=== PATIENT | male | born 1950 | race Caucasian/White ===

== ENCOUNTER 2016-07-23 19:42 | Inpatient (IN) | payer BC, OTHER ==
[~2016-07-23] VITALS: Ht 175.3 cm; Wt 109.9 kg
[~2016-07-23 19:42] MED LIST: FIORINAL2 PO; IMIT100T PO; METO50TA PO; MULTCAP14 PO; TYLE3 PO; VITA400C70 PO; ZOFR8TAB PO
[2016-07-23 20:11] VITALS: BP 149/92; PULSE 75; RESP 14; TEMP 97.3; O2SAT 95
[2016-07-23 21:10] VITALS: BP 169/91; PULSE 70; RESP 18; O2SAT 95
[2016-07-23] MEDS ORDERED: SODIUM CHLOR 0.9% 1000 ML INJ 1,000 ML IV ONE (21:14)
[2016-07-23] MEDS ORDERED: SODIUM CHLORIDE 0.9% FLUSH 10 ML FLUSH IVF PRN (21:15)
[2016-07-23] MEDS ORDERED: MECLIZINE HCL 25 MG TAB PO ONE (21:15)
[2016-07-23] MEDS ORDERED: ONDANSETRON HCL 4 MG/2 ML VIAL IVP ONE (21:15)
--- NOTE | 2016-07-23 21:46 | RADHPO ---
EXAM DATE/TIME: 07/23/2016 21:20 [facility] COMPARISON: CHEST PA & LAT, September 27, 2013, 10:40. INDICATIONS : Dizziness, weakness starting today MEDICAL HISTORY : None. SURGICAL HISTORY : None. ENCOUNTER: Initial ACUITY: 1 day PAIN SCORE: 0/10 LOCATION: Bilateral chest FINDINGS: A single view of the chest demonstrates the lungs to be symmetrically aerated without evidence of mas s, infiltrate or effusion. The cardiomediastinal contours are unremarkable. Osseous structures are intact. CONCLUSION: No acute disease. Jesus Valdes MD on July 23, 2016 at 21:45 Board Certified Radiologist. This report was verified electronically.
--- NOTE | 2016-07-23 21:46 | RADHPO ---
EXAM DATE/TIME: 07/23/2016 21:26 [facility] COMPARISON: No previous studies available for comparison. INDICATIONS : Dizziness. RADIATION DOSE: 66.21 CTDIvol (mGy) MEDICAL HISTORY : Hypertension. SURGICAL HISTORY : None. ENCOUNTER: Initial ACUITY: 1 day PAIN SCALE: 0/10 LOCATION: cranial TECHNIQUE: Multiple contiguous axial images were obtained of the head. Using automated exposure control and adj ustment of the mA and/or kV according to patient size, radiation dose was kept as low as reasonably a chievable to obtain optimal diagnostic quality images. FINDINGS: No signs of acute infarct or mass. Ventricles and cisterns are of normal size and configuration. No f ractures are seen. A focal area of increased attenuation in the left thalamic region measures 6.1 mm the possibility of a tiny hemorrhage at this level is difficult to exclude. There is no surrounding e saige or mass effect. A calcification can also have this appearance. CONCLUSION: Cannot exclude a tiny hemorrhage left thalamic region measuring 6 mm without surrounding edema. Calci fications may also have this appearance. A short interval followup CT examination may be of benefit. Otherwise unremarkable. Jesus Valdes MD on July 23, 2016 at 21:43 Board Certified Radiologist. This report was verified electronically.
[2016-07-23 22:10] VITALS: RESP 18; O2SAT 95
[2016-07-23 22:26] VITALS: BP 158/87; PULSE 69; RESP 18; O2SAT 93
[2016-07-23 22:29] LABS: AUTOMATED NEUTROPHIL # 10.2 TH/MM3 (1.8-7.7); BASOPHIL % 0.2 % (0.0-2.0); EOSINOPHIL % 0.1 % (0.0-4.0); HEMO FLAGS DIFF FINAL; LYMPH % 12.2 % (9.0-44.0); LYMPHOCYTE # 1.5 TH/MM3 (1.0-4.8); MEAN CELL VOLUME 87.8 FL (80.0-100.0); MEAN CORPUSCULAR HEMOGLOBIN 29.6 PG (27.0-34.0); MEAN CORPUSCULAR HGB CONC 33.7 % (32.0-36.0); MONO % 3.5 % (0.0-8.0); PLATELET COUNT 316 TH/MM3 (150-450); RED BLOOD COUNT 5.35 MIL/MM3 (4.50-5.90); RED CELL DISTRIBUTION WIDTH 12.9 % (11.6-17.2); WHITE BLOOD COUNT 12.1 TH/MM3 (4.0-11.0)
[2016-07-23 22:45] LABS: CHLORIDE 105 MEQ/L (98-107); POTASSIUM 4.3 MEQ/L (3.5-5.1); SODIUM (NA) 141 MEQ/L (136-145)
[2016-07-23 22:49] LABS: ANION GAP 8 MEQ/L (5-15); BICARBONATE 27.6 MEQ/L (21.0-32.0); BLOOD UREA NITROGEN 17 MG/DL (7-18)
[2016-07-23 22:52] LABS: ALT (GPT) 41 U/L (12-78); AST (GOT) 19 U/L (15-37); GLOMERULAR FILTRATION RATE 75 ML/MIN (>89)
[2016-07-23 22:53] LABS: TOTAL BILIRUBIN ADULT 0.3 MG/DL (0.2-1.0)
[2016-07-23 22:55] LABS: ALKALINE PHOSPHATASE 106 U/L (45-117); APTT (PATIENT) 32.4 SEC (24.3-30.1); INTERNATIONAL NORMALIZED RATIO 0.9 RATIO; PROTHROMBIN TIME - PATIENT 10.4 SEC (9.8-11.6)
[2016-07-23] MEDS ORDERED: hydrALAZINE HCL 20 MG/ML VIAL IV PUSH ONE (23:30)
[2016-07-23] MEDS ORDERED: DIAZEPAM 5 MG TAB PO ONE (23:30)
--- NOTE | 2016-07-23 23:47 | PD ---
HPI Chief Complaint: Dizziness Time Seen by Provider: 21:05 Travel History International Travel<30 days: No Contact w/Intl Traveler<30days: No Traveled to known affect area: No History of Present Illness HPI Patient is a 65-year-old male comes in complaining of dizziness. He says it started about 10 AM this morning. He says he feels like the room is spinning. He says that any change in position makes the dizziness worse. Laying still helps somewhat. He's had some nausea and vomited twice earlier today. He says that he had a headache earlier today, but that has resolved. He denies any head trauma. He denies any chest pain or shortness of breath. He says he has never had this before. [facility] Past Medical History Cancer: No Cardiovascular Problems: No Diabetes: No Endocrine: No Genitourinary: No Hepatitis: No Hiatal Hernia: No Hypertension: Yes Immune Disorder: No Medical other: Yes (CHRONIC MIGRAINES) Musculoskeletal: Yes (LOWER BACK PROBLEMS, SCIATICA) Neurologic: Yes (CHRONIC MIGRAINES - 10-15 PER MONTH) Psychiatric: No Reproductive: No Respiratory: No Thyroid Disease: No Tetanus Vaccination: Unknown Influenza Vaccination: No Past Surgical History AICD: No Joint Replacement: No Pacemaker: No Other Surgery: Yes Social History Alcohol Use: No Tobacco Use: No Substance Use: No Allergies-Medications (Allergen,Severity, Reaction): Coded Allergies: Naproxen (Verified Allergy, Mild, Swelling, 07/23/16) Reported Meds & Prescriptions Reported Meds & Active Scripts Active Review of Systems Except as stated in HPI: all other systems reviewed are Neg General / Constitutional: No: Fever, Chills Eyes: No: Blurred Vision HENT: Positive: Headaches, Vertigo Cardiovascular: No: Chest Pain or Discomfort Respiratory: No: Shortness of Breath Gastrointestinal: Positive: Nausea, Vomiting, No: Abdominal Pain Musculoskeletal: No: Myalgias Skin: No Rash, No Change in Pigmentation Neurologic: Positive: Dizziness, No: Focal Abnormalities Physical Exam Narrative GENERAL: Awake and alert, in no acute distress. SKIN: Focused skin assessment warm/dry. HEAD: Atraumatic. Normocephalic. EYES: Pupils equal and round. No scleral icterus. Extraocular movements intact , no nystagmus. ENT: Mucous membranes pink and moist. NECK: Trachea midline. No JVD. CARDIOVASCULAR: Regular rate and rhythm. No murmur appreciated. RESPIRATORY: No accessory muscle use. Clear to auscultation. Breath sounds equal bilaterally. GASTROINTESTINAL: Abdomen soft, non-tender, nondistended. MUSCULOSKELETAL: No obvious deformities. No clubbing. No cyanosis. No edema. NEUROLOGICAL: Awake and alert. No obvious cranial nerve deficits. Motor grossly within normal limits. Normal speech. Normal cerebellar function testing. PSYCHIATRIC: Appropriate mood and affect; insight and judgment normal. Data Data Last Documented VS Vital Signs Date Time Temp Pulse Resp B/P Pulse Ox O2 Delivery O2 Flow Rate FiO2 07/23/16 22:26 69 18 158/87 93 Room Air 07/23/16 20:11 97.3 Orders Electrocardiogram (07/23/16 21:14) Complete Blood Count With Diff (07/23/16 21:14) Comprehensive Metabolic Panel (07/23/16 21:14) Troponin I (07/23/16 21:14) Act Partial Throm Time (Ptt) (07/23/16 21:14) Prothrombin Time / Inr (Pt) (07/23/16 21:14) Chest, Single Ap (07/23/16 21:14) Ct Brain W/O Iv Contrast(Rout) (07/23/16 21:14) Ecg Monitoring (07/23/16 21:14) Iv Access Insert/Monitor (07/23/16 21:14) Oximetry (07/23/16 21:14) Meclizine (Antivert) (07/23/16 21:15) Ondansetron Inj (Zofran Inj) (07/23/16 21:15) Sodium Chloride 0.9% Flush (Ns Flush) (07/23/16 21:15) Sodium Chlor 0.9% 1000 Ml Inj (Ns 1000 M (07/23/16 21:14) Hydralazine Inj (Apresoline Inj) (07/23/16 23:30) Diazepam (Valium) (07/23/16 23:30) Admit Order (Ed Use Only) (07/23/16 ) Labs Laboratory Tests Test 07/23/16 22:10 White Blood Count 12.1 TH/MM3 Red Blood Count 5.35 MIL/MM3 Hemoglobin 15.8 GM/DL Hematocrit 47.0 % Mean Corpuscular Volume 87.8 FL Mean Corpuscular Hemoglobin 29.6 PG Mean Corpuscular Hemoglobin 33.7 % Concent Red Cell Distribution Width 12.9 % Platelet Count 316 TH/MM3 Mean Platelet Volume 7.7 FL Neutrophils (%) (Auto) 84.0 % Lymphocytes (%) (Auto) 12.2 % Monocytes (%) (Auto) 3.5 % Eosinophils (%) (Auto) 0.1 % Basophils (%) (Auto) 0.2 % Neutrophils # (Auto) 10.2 TH/MM3 Lymphocytes # (Auto) 1.5 TH/MM3 Monocytes # (Auto) 0.4 TH/MM3 Eosinophils # (Auto) 0.0 TH/MM3 Basophils # (Auto) 0.0 TH/MM3 CBC Comment DIFF FINAL Differential Comment Prothrombin Time 10.4 SEC Prothromb Time International 0.9 RATIO Ratio Activated Partial 32.4 SEC Thromboplast Time Sodium Level 141 MEQ/L Potassium Level 4.3 MEQ/L Chloride Level 105 MEQ/L Carbon Dioxide Level 27.6 MEQ/L Anion Gap 8 MEQ/L Blood Urea Nitrogen 17 MG/DL Creatinine 1.00 MG/DL Estimat Glomerular Filtration 75 ML/MIN Rate Random Glucose 157 MG/DL Calcium Level 8.7 MG/DL Total Bilirubin 0.3 MG/DL Aspartate Amino Transf 19 U/L (AST/SGOT) Alanine Aminotransferase 41 U/L (ALT/SGPT) Alkaline Phosphatase 106 U/L Troponin I LESS THAN 0.02 NG/ML Total Protein 7.6 GM/DL Albumin 4.0 GM/DL MDM Medical Decision Making Medical Screen Exam Complete: Yes Emergency Medical Condition: Yes Medical Record Reviewed: Yes Interpretation(s) ECG shows normal sinus rhythm at 69, no ST elevation or depression, normal intervals. Differential Diagnosis ICH versus benign positional vertigo versus migraine versus electrolyte abnormality versus ACS Narrative Course Patient is a 65-year-old male comes in complaining of severe dizziness. Exam shows no neurologic abnormalities. IV started, labs sent. Labs show slight elevation in white blood cell count. Other labs are within normal limits. Patient connected to the awake overnight monitor. Given IV fluids, Zofran, meclizine. He says this helped a little with his dizziness, but he still feels extreme dizziness when he moves his head. CT head concerning for possible hemorrhage in the thalamus. I spoke with Dr. Cordova of neurosurgery who would like the patient admitted to ICU at [facility]. Last [address] 07/23/162113 Signed Impressions: Service Date/Time: Saturday, July 23, 2016 21:26 - CONCLUSION: Cannot exclude a tiny hemorrhage left thalamic region measuring 6 mm without surrounding edema. Calcifications may also have this appearance. A short interval followup CT examination may be of benefit. Otherwise unremarkable. Jesus Valdes MD Chest X-Ray 07/23/162113 Signed Impressions: Service Date/Time: Saturday, July 23, 2016 21:20 - CONCLUSION: No acute disease. Jesus Valdes MD Patient to be admitted to Dr. Gibson. Given hydralazine for blood pressure control. Given Valium for continued symptoms. Diagnosis Primary Impression: ICH (intracerebral hemorrhage) Qualified Code: I61.9 - Left-sided nontraumatic intracerebral hemorrhage, unspecified cerebral location Additional Impression: Dizziness Admitting Information Admitting Physician Requests: Admit Condition: Stable Elaine Carreno MD July 23, 2016 23:47
[2016-07-23 23:51] VITALS: BP 168/99; PULSE 75; RESP 16; O2SAT 94
[2016-07-24] VITALS (13 sets, daily range): BP systolic 116–163; BP diastolic 64–85; PULSE 69–92; RESP 16–29; TEMP 97.5–98.1; O2SAT 92–96
[2016-07-24] MEDS: niCARdipine INJ 25 MG in SODIUM CHLOR 0.9% 250 ML INJ 250 ML IV SCH ×4 (00:21→13:22)
[2016-07-24] MEDS ORDERED: LABETALOL HCL 100 MG/20 ML VIAL IV PUSH PRN (04:45)
[2016-07-24] MEDS ORDERED: BISACODYL 10 MG SUPP RECTAL PRN (04:45)
[2016-07-24] MEDS ORDERED: CHLORHEXIDINE GLUCONATE 2 % 1 PACK (2 CLOTHS) TOP PRN (04:45)
[2016-07-24] MEDS ORDERED: hydrALAZINE HCL 20 MG/ML VIAL IV PUSH PRN (04:45)
[2016-07-24] MEDS ORDERED: ACETAMINOPHEN 325 MG TAB PO PRN (04:45)
[2016-07-24] MEDS ORDERED: LACTULOSE SYRUP 20 GM/30 ML CUP PO PRN (04:45)
[2016-07-24] MEDS ORDERED: MAGNESIUM HYDROXIDE SUSP 30 ML CUP PO PRN (04:45)
[2016-07-24] MEDS ORDERED: MISCELLANEOUS NURSING INFORMATION XX SCH (04:45)
[2016-07-24] MEDS ORDERED: SENNOSIDES 8.6 MG TAB PO PRN (04:45)
[2016-07-24] MEDS ORDERED: ONDANSETRON HCL 4 MG/2 ML VIAL IV PRN (04:45)
[2016-07-24] MEDS ORDERED: SODIUM CHLORIDE 0.9% FLUSH 10 ML FLUSH PRN (04:45)
--- NOTE | 2016-07-24 04:46 | HHI.HP ---
HPI Service Critical Care Medicine Primary Care Physician No Primary Care Physician Admission Diagnosis ICH Diagnosis: (1) Vertigo Travel History International Travel<30 Days: No Contact w/Intl Traveler <30 Da: No Traveled to Known Affected Are: No History of Present Illness 65 yo WM with past medical history of hypertension, obesity, chronic daily migraines who presented to [facility] after one day history of dizziness. He states that earlier the morning of 07/23 he was feeling fine. He began to develop a headache typical of his migraines and took Imitrex 100 mg. He then developed dizziness which he describes as "like the room spinning" and difficulty with balance. He did not fall. He states this is worse when he moves his head and better when he lays still and closes his eyes. After it first happened he went to sleep and when he woke up he felt vertigo as soon as he tried to sit up. He vomited. He denies any chest pain or shortness of breath. Has never had similar symptoms. Workup in the emergency department included CT brain with radiology report stating "cannot exclude a tiny hemorrhage left thalamic region measuring 6 mm without surrounding edema. Calcifications may have this appearance". Dr. Merrill discussed with Dr. Cordova who recommended transfer to [facility] emergency department for further evaluation. His blood pressure was 169/91 and he was started on nicardipine drip to maintain systolic blood pressure less than 150 . Patient states that he had an MRI about 9-12 months ago done at [facility] where he was told that there were similar findings in his left thalamus. He has recently had a sore throat for which she took a 10 day course of amoxicillin. He has noted that his right ear "feels stuffy". Past Family Social History Allergies: Coded Allergies: Naproxen (Verified Allergy, Mild, Swelling, 07/23/16) Past Medical History Chronic migraines "my whole life". Migraines have been increasing in frequency and has been going on daily for the last year. He is followed by Dr. Graham with [facility] Neurology. Hypertension but not on medication Obesity Past Surgical History L4-L5 hemilaminectomy and discectomy (09/30/13) Left knee meniscal surgery Reported Medications Imitrex 100 mg by mouth when necessary Fiorinal Percocet Family History Denies significant family medical history Social History He is a lifetime nonsmoker. Denies alcohol or illicit drug use. He is . His does not drive. His oldest son is emergency department physician in [employer]. He has another son that was recently accepted to [employer] He has a 4-1/2 months daughter Physical Exam Vital Signs Vital Signs Date Time Temp Pulse Resp B/P Pulse Ox O2 Delivery O2 Flow Rate FiO2 07/24/16 00:41 87 18 138/72 95 Room Air 07/24/16 00:30 86 18 146/73 94 Room Air 07/23/16 23:51 75 16 168/99 94 Room Air 07/23/16 22:26 69 18 158/87 93 Room Air 07/23/16 22:10 18 95 Room Air 07/23/16 21:10 70 18 95 Room Air 07/23/16 21:10 70 18 169/91 95 Room Air 07/23/16 20:11 97.3 75 14 149/92 95 Physical Exam Drips: Nicardipine 9 mg/h GENERAL: Well-nourished, well-developed patient who is sitting up in ISC bed SKIN: Warm and dry. HEAD: Atraumatic. Normocephalic. EYES: Pupils equal and round. No scleral icterus. No injection or drainage. ENT: No nasal bleeding or discharge. Mucous membranes pink and moist. TM with no erythema or effusion NECK: Trachea midline. No JVD. CARDIOVASCULAR: Regular rate and rhythm. No murmurs rubs or gallops. RESPIRATORY: No accessory muscle use. Clear to auscultation. Breath sounds equal bilaterally. GASTROINTESTINAL: Abdomen soft, non-tender, nondistended. Hepatic and splenic margins not palpable. MUSCULOSKELETAL: Extremities without clubbing, cyanosis, or edema. No obvious deformities. NEUROLOGICAL: Awake and alert. Pupils reactive. Extraocular movements are intact without nystagmus at rest. No facial droop, normal facial sensation, normal tongue protrusion, normal shoulder shrug. No pronator drift. Normal finger to nose bilaterally. No dysdiadochokinesis. Sensation intact deep. DTRs 2+ patellar. Strength 5 out of 5 all extremities. No clonus. Did not test gait. When Nylan Barany maneuver performed on the right, no nystagmus on initial rotation to the right, 3-4 beat horizontal nystagmus toward the left on sitting up. Laboratory Laboratory Tests Test 07/23/16 22:10 White Blood Count 12.1 Red Blood Count 5.35 Hemoglobin 15.8 Hematocrit 47.0 Mean Corpuscular Volume 87.8 Mean Corpuscular Hemoglobin 29.6 Mean Corpuscular Hemoglobin 33.7 Concent Red Cell Distribution Width 12.9 Platelet Count 316 Mean Platelet Volume 7.7 Neutrophils (%) (Auto) 84.0 Lymphocytes (%) (Auto) 12.2 Monocytes (%) (Auto) 3.5 Eosinophils (%) (Auto) 0.1 Basophils (%) (Auto) 0.2 Neutrophils # (Auto) 10.2 Lymphocytes # (Auto) 1.5 Monocytes # (Auto) 0.4 Eosinophils # (Auto) 0.0 Basophils # (Auto) 0.0 CBC Comment DIFF FINAL Differential Comment Prothrombin Time 10.4 Prothromb Time International 0.9 Ratio Activated Partial 32.4 Thromboplast Time Sodium Level 141 Potassium Level 4.3 Chloride Level 105 Carbon Dioxide Level 27.6 Anion Gap 8 Blood Urea Nitrogen 17 Creatinine 1.00 Estimat Glomerular Filtration 75 Rate Random Glucose 157 Calcium Level 8.7 Total Bilirubin 0.3 Aspartate Amino Transf 19 (AST/SGOT) Alanine Aminotransferase 41 (ALT/SGPT) Alkaline Phosphatase 106 Troponin I LESS THAN 0.02 Total Protein 7.6 Albumin 4.0 Result Diagram: 07/23/16220907/23/162209 Assessment and Plan Assessment and Plan NEURO: Imaging with reported questionable small left thalamic hemorrhage Vertigo Chronic migraines Patient indicates that he has been told he had similar finding of thalamic calcification on prior MRI imaging a year ago at [facility]. He states that these images were sent to Dr. Cordova office so would be reasonable to obtain these and correlate with current imaging. Vertigo symptoms that he is experiencing do not localize to the thalamus. Suspect benign positional vertigo versus ?vestibular migraine. Does not appear to be a central lesion on exam, though gait not tested. Neurology consult for recommendations for vertigo management. Patient may also benefit from migraine prophylactic measures. Dr. Cordova has been consulted, will follow-up recommendations. Meclizine 25 mg by mouth every 8 hours when necessary vertigo Continue home med Oxycodone as needed for pain. PT consult out of bed. RESP: On room air CV: Hypertension Will initiate metoprolol 12.5 mg by mouth twice a day for HTN as this agent can also be of benefit in migraine prophylaxis Wean off nicardipine as tolerated keeps systolic blood pressure less than 150. Labetalol/hydralazine when necessary systolic blood pressure greater than 150. GI: Obtained swallow eval and patient passed. Will advance diet to heart healthy. FEN/RENAL: Voiding ID: Mild leukocytosis may be reactive secondary to migraine/pain. Monitor for signs and symptoms of infection. Recently completed 10 day course of amoxicillin for pharyngitis HEME: Hematologic issues ENDO: Mild hyperglycemia. Monitor and initiate low-dose sliding scale if indicated. PROPH: SCDs for DVT prophylaxis. Hold pharmacologic DVT prophylaxis for now due to concern for a thalamic hemorrhage. Protonix 40 mEq by mouth daily for stress ulcer prophylaxis. ACCESS: Peripheral IV providing adequate access at this time. Level III H&P Meli Gibson MD July 24, 2016 04:46
[2016-07-24] MEDS ORDERED: oxyCODONE/ACETAMINOPHEN 5 MG/325 MG TAB PO PRN (06:15)
[2016-07-24] MEDS: PANTOPRAZOLE SODIUM 40 MG VIAL IV SCH (08:15)
[2016-07-24] MEDS: SODIUM CHLORIDE 0.9% FLUSH 10 ML FLUSH SCH ×2 (08:15→21:00)
[2016-07-24] MEDS: DOCUSATE SODIUM 50 MG/SENNA 8.6 MG TAB PO SCH ×3 (08:15→21:00)
[2016-07-24] MEDS: MECLIZINE HCL 25 MG TAB PO PRN ×2 (08:43→17:38)
[2016-07-24] MEDS ORDERED: METOPROLOL TARTRATE 25 MG TAB PO SCH (09:00)
[2016-07-24] MEDS: CARVEDILOL 12.5 MG TAB PO SCH (10:37)
[2016-07-24] MEDS: hydrALAZINE HCL 50 MG TAB PO SCH ×2 (14:17→22:00)
[2016-07-24] MEDS ORDERED: methylPREDNISolone SO SUCC INJ 500 MG in DEXTROSE 5% IN WATER 100ML INJ 100 ML IV ONE ×2 (15:00)
[2016-07-24] MEDS ORDERED: VALPROATE INJ 500 MG in SODIUM CHLORIDE 0.9% INJ 100 ML IV ONE (15:00)
--- NOTE | 2016-07-24 16:51 | MB ---
cc: SPENCER CAICEDO M.D. DATE OF CONSULTATION 07/24/16 1951 REASON FOR CONSULTATION Vertigo, migraine HISTORY OF PRESENT ILLNESS A 65-year-old man with a history of hypertension, obesity, chronic migraines since the mid 80s. However, his migraines have changed to daily now. He follows with [facility] neurology I believe, Dr. Turpin's group. He comes to [facility] after a day of dizziness, vertigo. He states that early in the morning he was fine and all of a sudden developed a headache. He took his Imitrex and developed severe vertigo where whole room spins, but he cannot tell me if it is lateralizing to one side. PT did get him up and move him and the vertigo did start, so may just be from lying down to sitting, standing. If he is lying in bed, he is fine. He has no weakness in the arms or legs. No chest pain or shortness of breath. He states that they have been working on his migraines and there he was supposed to get an injection. However, there were some insurance issues and they not get approval and it will not be done until August 04 and his migraines have been relentless. He has been on various medicines over the years and Imitrex was the one that always worked with a combination of Percocet and Fiorinal. However, even that is seemingly not working well anymore. He had a CT that showed possible small hemorrhage in the left thalamus and was transferred here to be seen by neurosurgery, Dr. Cordova. ALLERGIES NAPROSYN PAST MEDICAL HISTORY 1. Chronic migraines, 2. Hypertension, 3. Obesity, 4. Chronic cervicogenic pain. PAST SURGICAL HISTORY 1. L12-5 hemilaminectomy and diskectomy on 06/01/[address] Cordova. 2. Left knee meniscus surgery MEDICATIONS Home medicines are 1. Imitrex 2. Fiorinal 3. Percocet Current hospital medicines 1. P.r.n., hydralazine, 2. Coreg, 3. Amlodipine, 4. Pantoprazole, 5. Colace, 6. Percocet 7. Labetalol p.r.n. 8. Nicardipine drip stated 9. Meclizine p.r.n. FAMILY HISTORY None significant at this point. SOCIAL HISTORY Nonsmoker. No alcohol. No illicit drugs. . He has a son, emergency room doctor in [place]. He has another son that is also going to medical school he states. He has a 4 1/2 month-old daughter. PHYSICAL EXAMINATION VITAL SIGNS: Temperature is 97.9, pulse 84, respiratory rate 18, blood pressure is 129/71 satting at 92%. He is on a Cardene drip. NECK: Supple. No bruits. HEART: Regular. NEUROLOGIC: He is awake and alert. He is oriented and fluent. His pupils are reactive. Visual huertas are full. Face symmetrical. Tongue midline. He has some paracervical tenderness but normal range of motion. No drift. No leg lag. Cerebellar testing is normal. Toes downgoing. Sensory is normal. Gait is withheld at this time. LABORATORY DATA Reviewed. White count 12.1, neutrophils 84%. Coag panel was PTT 32.4. Chemistries - GFR 75. His glucose 157. IMAGING STUDIES He did have CT of the head that cannot exclude small hemorrhage in the thalamic 6 mm without edema. Calcifications may also be possible having this appearance. Chest x-ray - No acute disease. The patient does state that he had apparently an MRI of the brain in [facility] I believe maybe a year ago but has not had any followup since then. IMPRESSION A 65-year-old man with vertigo. Certainly concerning may be a posterior or vertebrobasilar insufficiency, posterior circulation insult. Fortunately, CAT scan does not show a large stroke. It shows a questionable left thalamic bleed, could be a calcification certainly. I would recommend imaging his brain with and without contrast. The MRI to look at the [place] as well as the carotids to better delineate the arterial system. He may also, if that is negative, just benefit from a cervical spine MRI to determine if he has any significant stenosis as he states that there has been a history of that. What I will do is put him on a little bit of steroids with some IV Depacon to see if that eliminates the headache. Continue blood pressure medication as doing and certainly can continue with meclizine as well as p.r.n. pain medication. If indicated, depending on what the posterior circulation shows he may benefit from a baby aspirin daily, however, depending on what the findings show. Further recommendations will be made accordingly. MD WINNIE Mata /1:41 PM /4:33 PM
--- NOTE | 2016-07-24 17:15 | EKG ---
Date Performed: 07/23/2016 Time Performed: 21:17:02 PTAGE: 65 years EKG: Sinus rhythm . Left axis deviation Borderline ECG PREVIOUS TRACING : 09/27/2013 09.51 Compared to prior tracing no significant change DOCTOR: Joao Lepe Interpretating Date/Time 07/24/2016 17:14:01
[2016-07-24] MEDS ORDERED: ACETAMIN 325 MG/BUTALBITAL 50 MG/CAFFEINE 40 MG TAB PO ONE (20:00)
[2016-07-24] MEDS ORDERED: SUMAtriptan SUCCINATE 50 MG TAB PO ONE (20:00)
[2016-07-25] VITALS (11 sets, daily range): BP systolic 117–153; BP diastolic 53–83; PULSE 65–94; RESP 19–26; TEMP 97.6–98.6; O2SAT 93–95
[2016-07-25] MEDS: CARVEDILOL 12.5 MG TAB PO SCH ×3 (00:26→22:15)
[2016-07-25] MEDS: CHLORHEXIDINE GLUCONATE 2 % 1 PACK (2 CLOTHS) TOP SCH (00:26)
[2016-07-25] MEDS: hydrALAZINE HCL 50 MG TAB PO SCH (05:12)
[2016-07-25] MEDS: PANTOPRAZOLE SODIUM 40 MG VIAL IV SCH (08:36)
[2016-07-25] MEDS: SODIUM CHLORIDE 0.9% FLUSH 10 ML FLUSH SCH ×2 (08:40→22:16)
[2016-07-25] MEDS: DOCUSATE SODIUM 50 MG/SENNA 8.6 MG TAB PO SCH ×2 (08:40→22:15)
[2016-07-25] MEDS ORDERED: GADODIAMIDE PF 287 MG/ML 20 ML VIAL (for RAD MRI) IV ONE (09:24)
--- NOTE | 2016-07-25 09:56 | RADRPT ---
EXAM DATE/TIME: 07/25/2016 08:50 [facility] COMPARISON: CT BRAIN W/O CONTRAST, July 23, 2016, 21:26. INDICATIONS : Mass. Intracranial hemorrhage. CONTRAST: 20 cc Omniscan (gadodiamide) IV MEDICAL HISTORY : Hypertension. SURGICAL HISTORY : Tonsillectomy. Discectomy, lumbar. ENCOUNTER: Initial ACUITY: 1 day PAIN SCORE: 0/10 LOCATION: Head. TECHNIQUE: Multiplanar, multisequence MRI of the brain was performed both prior to and following the administrat ion of paramagnetic contrast. FINDINGS: CEREBRUM: Small T2 signal abnormality in the left basal ganglia in the regional of the posterior limb of the in ternal capsule with some minimal susceptibility artifact. This measures 7 mm. The ventricles are norm al for age. No evidence of midline shift, mass lesion, or acute infarction. No extraaxial fluid col lections are seen. The pituitary gland and suprasellar cistern are normal in configuration. WHITE MATTER: No significant signal abnormalities are seen in the white matter. POSTERIOR FOSSA: The cerebellum and brainstem are intact. The 4th ventricle is midline. The cerebellopontine angle is unremarkable. The cerebellar tonsils are normal in position. DIFFUSION IMAGING: No focal areas of restricted diffusion are seen. No evidence of acute infarction. EXTRACRANIAL: The visualized portions of the orbits and paranasal sinuses are unremarkable. POST-CONTRAST: No abnormal areas of parenchymal or dural enhancement. No evidence of blood-brain barrier breakdown. CONCLUSION: 1. Tiny left basal ganglia hemorrhage. No midline shift or mass effect. 2. No mass identified. Scott Rutherford MD on July 25, 2016 at 9:49 Board Certified Radiologist. This report was verified electronically.
[2016-07-25] MEDS: MECLIZINE HCL 25 MG TAB PO PRN ×3 (09:57→22:15)
--- NOTE | 2016-07-25 10:25 | RADRPT ---
EXAM DATE/TIME: 07/25/2016 08:50 [facility] COMPARISON: No previous studies available for comparison. INDICATIONS : Stenosis. Vertebralbasilar insufficiency. CONTRAST: 20 cc Omniscan (gadodiamide) IV MEDICAL HISTORY : Hypertension. SURGICAL HISTORY : Tonsillectomy. Discectomy, lumbar. ENCOUNTER: Initial ACUITY: 1 day PAIN SCORE: 0/10 LOCATION: Neck. Percent stenosis is calculated using the diameter of the stenotic region over the diameter of the nor mal distal internal carotid artery. TECHNIQUE: Bolus infused MRA of the extracranial circulation was performed using a neurovascular coil. Post pro cessing was performed including rotating subvolume maximum intensity projections of each carotid maikel ry, rotating full volume maximum intensity projections of both carotid arteries, sagittal and coronal sliding thin slab reformations of each carotid artery, and left oblique sliding thin slab reformatio n through the aortic arch to include the origin of the arch branch vessels. FINDINGS: AORTIC ARCH: There is a three vessel origin of the great vessels from the aorta. No evidence of ostial narrowing. RIGHT CAROTID: The common carotid artery is intact. The carotid bulb has a normal configuration without ulceration or narrowing. The internal carotid artery lumen is smooth without stenosis. The external carotid ar rita is intact. LEFT CAROTID: The common carotid artery is intact. The carotid bulb has a normal configuration without ulceration or narrowing. The internal carotid artery lumen is smooth without stenosis. The external carotid ar rita is intact. VERTEBRALS: The vertebral arteries have a symmetric diameter. No stenotic lesions are seen. CONCLUSION: 1. Normal carotid arteries. 2. Normal vertebral/basilar arteries. Scott Rutherford MD on July 25, 2016 at 10:21 Board Certified Radiologist. This report was verified electronically.
--- NOTE | 2016-07-25 10:28 | RADRPT ---
EXAM DATE/TIME: 07/25/2016 08:50 [facility] COMPARISON: No previous studies available for comparison. INDICATIONS : Cephalgia. Vertebralbasilar insufficiency. MEDICAL HISTORY : Hypertension. SURGICAL HISTORY : Tonsillectomy. Discectomy, lumbar. ENCOUNTER: Initial ACUITY: 1 day PAIN SCORE: 0/10 LOCATION: Head. Please note a normal MRA of the brain does not entirely exclude the possibility of a small aneurysm, nor the possibility of distal intracranial vessel disease. TECHNIQUE: 3D time of flight MRA was performed. Source images, multiplanar STS MIP, and 3D volume MIP reconstru ctions were reviewed. FINDINGS: There is excellent visualization of the major intracranial arteries out to the second-order branch ve ssels. There is no evidence for aneurysm, vessel truncation or stenosis, and no evidence for vascula r malformation. Anterior communicating artery is not seen. Bilateral posterior communicating arteries , larger on the left. Vertebrobasilar junction is normal. Basilar artery is normal. Distal internal c arotid arteries are normal in caliber. Left basal ganglia hemorrhage. CONCLUSION: 1. Left basal ganglia hemorrhage. 2. No stenosis or aneurysm. 3. Normal variants as described above. Scott Rutherford MD on July 25, 2016 at 10:23 Board Certified Radiologist. This report was verified electronically.
[2016-07-25 14:12] LABS: HDL CHOLESTEROL 54.3 MG/DL (40.0-60.0); LDL CHOLESTEROL 95 MG/DL (0-99)
[2016-07-25] MEDS: hydrALAZINE HCL 100 MG TAB PO SCH ×2 (14:45→22:15)
[2016-07-25 16:30] LABS: HEMOGLOBIN A1a 1.4 %; HEMOGLOBIN A1b 2.3 %; HEMOGLOBIN Ao 81.1 %; HEMOGLOBIN LA1C 3.2 %; HEMOGLOBIN P3 6.2 %
[2016-07-25] MEDS ORDERED: ENALAPRILAT 2.5 MG/2 ML VIAL IV PUSH PRN (16:30)
--- NOTE | 2016-07-25 16:30 | HHI.PR ---
Subjective Remarks f/u vertigo and Osei patient stated OSEI improved once he got his sumatriptan. he also stated that meclizine helps his vertigo and he never refused it. denied any focal neurological deficits. Patient asking to go home. denied any N/V and tolerating PO intake. Objective Vitals Vital Signs Date Time Temp Pulse Resp B/P Pulse Ox O2 Delivery O2 Flow Rate FiO2 07/25/16 14:00 93 07/25/16 12:00 97.7 94 24 153/83 93 07/25/16 12:00 94 07/25/16 10:00 81 07/25/16 08:00 90 07/25/16 08:00 95 Room Air 07/25/16 08:00 98.6 90 20 134/61 95 07/25/16 04:00 74 07/25/16 04:00 98.6 74 19 117/53 94 07/25/16 02:00 86 07/25/16 00:00 85 07/25/16 00:00 97.6 88 21 119/64 95 07/24/16 22:00 74 07/24/16 20:00 69 07/24/16 20:00 98.1 69 21 132/79 95 07/24/16 19:00 94 Room Air 07/24/16 18:00 72 I/O 07/24/16 07/24/16 07/24/16 07/25/16 07/25/16 07/25/16 07:00 15:00 23:00 07:00 15:00 23:00 Intake Total 492 ml 1195 ml 500 ml 720 ml Output Total 1650 ml 1875 ml 150 ml 600 ml Balance -1158 ml -680 ml 350 ml 120 ml Intake Oral 240 ml 720 ml 250 ml 720 ml IV Total 252 ml 475 ml 250 ml 0 ml Output Urine Total 1650 ml 1875 ml 600 ml Emesis 150 ml # Voids 1 2 # Bowel Movements 0 Result Diagram: 07/23/16220907/23/162209 Objective Remarks GENERAL: in NAD NECK: Supple, trachea midline. No JVD or lymphadenopathy. CARDIOVASCULAR: Regular rate and rhythm without murmurs, gallops, or rubs. RESPIRATORY: Breath sounds equal bilaterally. No accessory muscle use. GASTROINTESTINAL: Abdomen soft, non-tender, nondistended. MUSCULOSKELETAL: No cyanosis, or edema. BACK: Nontender without obvious deformity. No CVA tenderness. NEURO: AAO X 3. CN 2-12 intact. 5/5 upper and lower ext strength. coordination intact. Medications and IVs Current Medications Meclizine HCl (Antivert) 50 mg ONCE ONCE PO Last administered on 07/23/16 22: 23; Start 07/23/16 at 21:15; Stop 07/23/16 at 21:16; Status DC Ondansetron HCl (Zofran Inj) 4 mg ONCE ONCE IVP Last administered on 22:22; Start 07/23/16 at 21:15; Stop 07/23/16 at 21:16; Status DC Sodium Chloride 2 ml 2 ml UNSCH PRN IVF FLUSH AFTER USING IV ACCESS; Start at 21:15; Stop 07/24/16 at 04:51; Status DC Sodium Chloride (NS 1000 ml Inj) 1,000 ml @ 1,000 mls/hr Q1H ONCE IV Last administered on 07/23/16 22:22; Start 07/23/16 at 21:14; Stop 07/23/16 at 22:13 ; Status DC Hydralazine HCl (Apresoline Inj) 10 mg ONCE ONCE IV PUSH Last administered on 07/23/16 23:38; Start 07/23/16 at 23:30; Stop 07/23/16 at 23:31; Status DC Diazepam 5 mg 5 mg ONCE ONCE PO Last administered on 07/23/16 23:38; Start at 23:30; Stop 07/23/16 at 23:31; Status DC Nicardipine HCl/ Sodium Chloride (Cardene Inj/NS 250 ml Inj) 260 ml @ 0 mls/hr TITRATE IV Last administered on 07/24/16 03:07; Start 07/24/16 at 00:15; Stop 07/24/16 at 04:51; Status DC Meclizine HCl (Antivert) 25 mg Q6H PRN PO VERTIGO Last administered on 14:48; Start 07/24/16 at 04:30 Labetalol HCl (Trandate Inj) 10 mg Q4H PRN IV PUSH SBP >150; Start 07/24/16 at 04:45 Metoprolol Tartrate (Lopressor) 12.5 mg Q12HR PO Last administered on 08:15; Start 07/24/16 at 09:00; Stop 07/24/16 at 10:14; Status DC Sodium Chloride (NS Flush) 2 ml UNSCH PRN .XX FLUSH AFTER USING IV ACCESS; Start 07/24/16 at 04:45 Sodium Chloride (NS Flush) 2 ml BID .XX Last administered on 07/25/16 08:40; Start 07/24/16 at 09:00 Acetaminophen (Tylenol) 650 mg Q6H PRN PO PAIN 1-10 AND/OR FEVER >101F; Start 07/24/16 at 04:45 Pantoprazole Sodium (Protonix Inj) 40 mg DAILY IV Last administered on 08:36; Start 07/24/16 at 09:00; Stop 07/25/16 at 08:48; Status DC Ondansetron HCl (Zofran Inj) 4 mg Q6H PRN IV NAUSEA OR VOMITING Last administered on 07/24/16 20:31; Start 07/24/16 at 04:45 Miscellaneous Information 1 Q361D XX Last administered on 07/24/16 04:45; Start 07/24/16 at 04:45 Chlorhexidine Gluconate (Chlorhexidine 2% Cloth) 3 pack Taper DAILY@04 TOP ; Start 07/25/16 at 04:00; Stop 07/21/17 at 03:59 Chlorhexidine Gluconate (Chlorhexidine 2% Cloth) 3 pack UNSCH PRN TOP HYGIENIC CARE; Start 07/24/16 at 04:45 Senna/Docusate Sodium (Zo-Colace) 1 tab BID PO ; Start 07/24/16 at 09:00 Magnesium Hydroxide (Milk Of Magnesia Liq) 30 ml Q12H PRN PO MILD - MODERATE CONSTIPATION; Start 07/24/16 at 04:45 Sennosides (Senokot) 17.2 mg Q12H PRN PO MODERATE - SEVERE CONSTIPATION; Start 07/24/16 at 04:45 Bisacodyl (Dulcolax Supp) 10 mg DAILY PRN RECTAL SEVERE CONSITIPATION; Start at 04:45 Lactulose 30 ml 30 ml DAILY PRN PO SEVERE CONSITIPATION; Start 07/24/16 at 04: 45 Nicardipine HCl/ Sodium Chloride (Cardene Inj/NS 250 ml Inj) 260 ml @ 0 mls/hr TITRATE IV Last administered on 07/24/16 13:22; Start 07/24/16 at 04:45; Stop 07/25/16 at 13:11; Status DC Hydralazine HCl (Apresoline Inj) 10 mg Q4H PRN IV PUSH SBP > 150 Last administered on 07/25/16 10:02; Start 07/24/16 at 04:45 Oxycodone/ Acetaminophen (Percocet 5-325 Mg) 1 tab Q4H PRN PO PAIN Last administered on 07/24/16 14:17; Start 07/24/16 at 06:15 Carvedilol (Coreg) 12.5 mg Q12HR PO Last administered on 07/25/16 08:36; Start 07/24/16 at 10:11 Amlodipine Besylate (Norvasc) 10 mg DAILY PO Last administered on 07/25/16 08: 36; Start 07/24/16 at 10:11 Hydralazine HCl 50 mg 50 mg Q8HR PO Last administered on 07/25/16 05:12; Start 07/24/16 at 14:00; Stop 07/25/16 at 13:11; Status DC Valproate Sodium 500 mg/Sodium Chloride 105 ml @ 105 mls/hr ONCE ONCE IV Last administered on 07/24/16 15:46; Start 07/24/16 at 15:00; Stop 07/24/16 at 15:59; Status DC Methylprednisolone Sodium Succinate/ Dextrose (SoluMEDROL INJ/ D5W 100 ml Inj) 100 ml @ 200 mls/hr ONCE ONCE IV Last administered on 07/24/16 15:46; Start 07/24/16 at 15:00; Stop 07/24/16 at 15:29; Status DC Acetaminophen/ Butalbital/ Caffeine (Fioricet 325-50-40) 1 tab NOW ONCE PO Last administered on 07/24/16 20:31; Start 07/24/16 at 20:00; Stop 07/24/16 at 20:01; Status DC Sumatriptan Succinate (Imitrex) 100 mg NOW ONCE PO Last administered on 20:31; Start 07/24/16 at 20:00; Stop 07/24/16 at 20:01; Status DC Pantoprazole Sodium (Protonix) 40 mg DAILY PO ; Start 07/26/16 at 09:00 Gadodiamide (Omniscan Pf Inj) 20 ml STK-MED ONCE IV Last administered on 09:24; Start 07/25/16 at 09:24; Stop 07/25/16 at 09:25; Status DC Hydralazine HCl (Apresoline) 100 mg Q8HR PO Last administered on 07/25/16 14: 45; Start 07/25/16 at 14:00 A/P Problem List: (1) Vertigo ICD Code: R42 Status: Acute Assessment and Plan Imaging with reported small left thalamic hemorrhage Vertigo Chronic migraines d/w Dr. Cordova in person in regards to results. He stated if ASA indicated may start ASA. no further recommendations. d/w Dr. Vaz over the phone and stated if patient clinically doing well can d/ c on ASA, but patient signed out to Dr. Mcfarland if he is still here. Meclizine 25 mg by mouth every 8 hours when necessary vertigo which improved vertigo so continue with meclizine PRN. Continue home med Oxycodone as needed for pain. need better controlled of blood pressure. medication adjusted. Hypertension on metoprolol 12.5 mg by mouth twice a day for HTN as this agent can also be of benefit in migraine prophylaxis off cardene gtt. on enalapril PRN Mild leukocytosis -no signs of infection. PROPH: SCDs for DVT prophylaxis. Hold pharmacologic DVT prophylaxis for now due to concern for a thalamic hemorrhage. Protonix 40 mEq by mouth daily for stress ulcer prophylaxis. nurse was at bedside during interview. Discharge Planning Need better control of BP before discharge due to intracranial bleed. Mahi Chiang MD July 25, 2016 16:30
--- NOTE | 2016-07-25 18:49 | HHI.PR ---
Objective Vital Signs Date Time Temp Pulse Resp B/P Pulse Ox O2 Delivery O2 Flow Rate FiO2 07/25/16 18:00 85 07/25/16 16:00 98.2 94 26 148/79 95 07/25/16 16:00 94 07/25/16 14:00 93 07/25/16 12:00 97.7 94 24 153/83 93 07/25/16 12:00 94 07/25/16 10:00 81 07/25/16 08:00 90 07/25/16 08:00 95 Room Air 07/25/16 08:00 98.6 90 20 134/61 95 07/25/16 04:00 74 07/25/16 04:00 98.6 74 19 117/53 94 07/25/16 02:00 86 07/25/16 00:00 85 07/25/16 00:00 97.6 88 21 119/64 95 07/24/16 22:00 74 07/24/16 20:00 69 07/24/16 20:00 98.1 69 21 132/79 95 07/24/16 19:00 94 Room Air I/O 07/24/16 07/24/16 07/24/16 07/25/16 07/25/16 07/25/16 07:00 15:00 23:00 07:00 15:00 23:00 Intake Total 492 ml 1195 ml 500 ml 720 ml Output Total 1650 ml 1875 ml 150 ml 600 ml Balance -1158 ml -680 ml 350 ml 120 ml Intake Oral 240 ml 720 ml 250 ml 720 ml IV Total 252 ml 475 ml 250 ml 0 ml Output Urine Total 1650 ml 1875 ml 600 ml Emesis 150 ml # Voids 1 2 # Bowel Movements 0 Result Diagram: 07/23/16 22107/23/162209 Objective Remarks no herrera now vff face sym /5 t/o nad Assessment and Plan Assessment and Plan mri adn ct small left thalmic bleed mra neck and cow neg looks well ] could dc tomorrow if stable some new dm he does not know about check esr Demetrio Mcfarland MD July 25, 2016 18:49
[2016-07-25] MEDS ORDERED: SUMAtriptan SUCCINATE 50 MG TAB PO ONE (23:15)
[2016-07-25] MEDS ORDERED: ACETAMIN 325 MG/BUTALBITAL 50 MG/CAFFEINE 40 MG TAB PO ONE (23:15)
[2016-07-26 01:00] VITALS: BP 122/60; PULSE 80; RESP 18; TEMP 97.3; O2SAT 94
[2016-07-26] MEDS: CHLORHEXIDINE GLUCONATE 2 % 1 PACK (2 CLOTHS) TOP SCH (04:00)
[2016-07-26 04:59] VITALS: BP_SYST 120; BP_SYST 122; BP_DIAS 53; BP_DIAS 60; PULSE 68; RESP 18; TEMP 97.3; O2SAT 94
[2016-07-26] MEDS: hydrALAZINE HCL 100 MG TAB PO SCH (05:39)
[2016-07-26 08:00] VITALS: BP 102/51; PULSE 80; RESP 18; TEMP 96.5; O2SAT 93
[2016-07-26 08:06] LABS: HEMATOCRIT 44.6 % (39.0-51.0); MEAN CELL VOLUME 89.3 FL (80.0-100.0); MEAN CORPUSCULAR HEMOGLOBIN 29.3 PG (27.0-34.0); MEAN CORPUSCULAR HGB CONC 32.8 % (32.0-36.0); PLATELET COUNT 283 TH/MM3 (150-450); RED CELL DISTRIBUTION WIDTH 14.1 % (11.6-17.2); REVIEW FLAG FINAL
[2016-07-26 08:26] LABS: BICARBONATE 29.6 MEQ/L (21.0-32.0)
[2016-07-26] MEDS: CARVEDILOL 12.5 MG TAB PO SCH (09:00)
[2016-07-26] MEDS ORDERED: PANTOPRAZOLE SOD 40 MG DELAYED RELEASE TAB PO SCH (09:00)
[2016-07-26] MEDS: SODIUM CHLORIDE 0.9% FLUSH 10 ML FLUSH SCH (09:00)
[2016-07-26] MEDS: DOCUSATE SODIUM 50 MG/SENNA 8.6 MG TAB PO SCH (09:00)
[2016-07-26] MEDS: MECLIZINE HCL 25 MG TAB PO PRN (09:05)
--- NOTE | 2016-07-26 10:15 | HHI.PR ---
Subjective Remarks herrera on and off dc with imitrex Objective Vital Signs Date Time Temp Pulse Resp B/P Pulse Ox O2 Delivery O2 Flow Rate FiO2 07/26/16 08:00 96.5 80 18 102/51 93 07/26/16 04:59 97.3 68 18 122/60 94 07/26/16 01:00 97.3 80 18 122/60 94 07/25/16 22:00 65 07/25/16 20:00 88 07/25/16 20:00 98.4 88 21 128/56 94 07/25/16 19:00 94 Room Air 07/25/16 18:00 85 07/25/16 16:00 98.2 94 26 148/79 95 07/25/16 16:00 94 07/25/16 14:00 93 07/25/16 12:00 97.7 94 24 153/83 93 07/25/16 12:00 94 I/O 07/25/16 07/25/16 07/25/16 07/26/16 07/26/16 07/26/16 07:00 15:00 23:00 07:00 15:00 23:00 Intake Total 720 ml 500 ml Output Total 600 ml Balance 120 ml 500 ml Intake Oral 720 ml 500 ml IV Total 0 ml Output Urine Total 600 ml # Voids 2 3 5 # Bowel Movements 2 Result Diagram: 07/26/16 0740 07/26/16 0745 Objective Remarks no herrera now vff face sym 07/04 t/o nad nl gait no nystag Assessment and Plan Assessment and Plan mri and ct small left thalmic bleed mra neck and cow neg looks well could dc gait nl some new dm he does not know about check esr nl ok dc call dr riggins office Demetrio Obregon MD July 26, 2016 10:15
[2016-07-26] MEDS ORDERED: HYDR-3801 PO (10:35)
[2016-07-26] MEDS ORDERED: CARV12.5 PO (10:35)
[2016-07-26] MEDS ORDERED: MECL1TAB42 PO (10:35)
[2016-07-26] MEDS ORDERED: AMLO10 PO (10:35)
[2016-07-26] MEDS ORDERED: BUTA1CAP PO (10:37)
--- NOTE | 2016-07-26 10:42 | HHI.DS ---
Discharge Summary Admission Date July 23, 2016 at 23:25 Discharge Date: July 26, 2016 Admitting Diagnosis ICH (1) ICH (intracerebral hemorrhage) ICD Code: I61.9 Diagnosis: Principal (2) Vertigo ICD Code: R42 Diagnosis: Principal (3) Hypertension ICD Code: I10 Diagnosis: Principal (4) Headache ICD Code: R51 Diagnosis: Principal (5) Diabetes ICD Code: E11.9 Diagnosis: Secondary Procedures None Brief History - From Admission 65 yo WM with past medical history of hypertension, obesity, chronic daily migraines who presented to [facility] after one day history of dizziness. He states that earlier the morning of 07/23 he was feeling fine. He began to develop a headache typical of his migraines and took Imitrex 100 mg. He then developed dizziness which he describes as "like the room spinning" and difficulty with balance. He did not fall. He states this is worse when he moves his head and better when he lays still and closes his eyes. After it first happened he went to sleep and when he woke up he felt vertigo as soon as he tried to sit up. He vomited. He denies any chest pain or shortness of breath. Has never had similar symptoms. Workup in the emergency department included CT brain with radiology report stating "cannot exclude a tiny hemorrhage left thalamic region measuring 6 mm without surrounding edema. Calcifications may have this appearance". Dr. Merrill discussed with Dr. Cordova who recommended transfer to [facility] emergency department for further evaluation. His blood pressure was 169/91 and he was started on nicardipine drip to maintain systolic blood pressure less than 150 . Patient states that he had an MRI about 9-12 months ago done at [facility] where he was told that there were similar findings in his left thalamus. He has recently had a sore throat for which she took a 10 day course of amoxicillin. He has noted that his right ear "feels stuffy". CBC/BMP: 07/26/16 0740 07/26/16 0745 Significant Findings Laboratory Tests Test 07/23/16 07/25/16 07/26/16 07/26/16 22:10 13:30 07:40 07:45 White Blood Count 12.1 TH/MM3 12.0 TH/MM3 (4.0-11.0) (4.0-11.0) Neutrophils (%) (Auto) 84.0 % (16.0-70.0) Neutrophils # (Auto) 10.2 TH/MM3 (1.8-7.7) Activated Partial 32.4 SEC Thromboplast Time (24.3-30.1) Estimat Glomerular Filtration 75 ML/MIN (>89) 73 ML/MIN (>89) Rate Random Glucose 157 MG/DL 118 MG/DL (74-106) (74-106) Troponin I LESS THAN 0.02 NG/ML (0.02-0.05) Hemoglobin A1c 7.0 % (4.3-6.0) Blood Urea Nitrogen 27 MG/DL (7-18) Calcium Level 8.2 MG/DL (8.5-10.1) Imaging Last Impressions Neck Magnetic Resonance Angiography 07/25/16 0000 Signed Impressions: Service Date/Time: Monday, July 25, 2016 08:50 - CONCLUSION: 1. Normal carotid arteries. 2. Normal vertebral/basilar arteries. Scott Rutherford MD Head Magnetic Resonance Angiography 07/25/16 0000 Signed Impressions: Service Date/Time: Monday, July 25, 2016 08:50 - CONCLUSION: 1. Left basal ganglia hemorrhage. 2. No stenosis or aneurysm. 3. Normal variants as described above. Scott Rutherford MD Brain MRI 07/25/16 0000 Signed Impressions: Service Date/Time: Monday, July 25, 2016 08:50 - CONCLUSION: 1. Tiny left basal ganglia hemorrhage. No midline shift or mass effect. 2. No mass identified. Scott Rutherford MD Head CT 07/23/162113 Signed Impressions: Service Date/Time: Saturday, July 23, 2016 21:26 - CONCLUSION: Cannot exclude a tiny hemorrhage left thalamic region measuring 6 mm without surrounding edema. Calcifications may also have this appearance. A short interval followup CT examination may be of benefit. Otherwise unremarkable. Jesus Valdes MD Chest X-Ray 07/23/162113 Signed Impressions: Service Date/Time: Saturday, July 23, 2016 21:20 - CONCLUSION: No acute disease. Jesus Valdes MD PE at Discharge GENERAL: in NAD NECK: Supple, trachea midline. No JVD or lymphadenopathy. CARDIOVASCULAR: Regular rate and rhythm without murmurs, gallops, or rubs. RESPIRATORY: Breath sounds equal bilaterally. No accessory muscle use. GASTROINTESTINAL: Abdomen soft, non-tender, nondistended. MUSCULOSKELETAL: No cyanosis, or edema. BACK: Nontender without obvious deformity. No CVA tenderness. NEURO: AAO X 3. CN 2-12 intact. 5/5 upper and lower ext strength. coordination intact. Pt update on day of discharge Follow-up for intracranial bleed Patient stated that headache resolved with Fioricet. He stated that he is not aware of him having diabetes. Patient stated that dizziness has resolved. Patient denies any focal neurological deficit, visual changes. Patient stated that he feels a lot better today. He shouldn't stated that he is very anxious to go home today. Hospital Course Imaging with reported small left thalamic hemorrhage Vertigo Chronic migraines MRI/MRA shows a small left thalamic hemorrhage d/w Dr. Cordova in person in regards to results. He stated if ASA indicated may start ASA. no further recommendations. Per Dr. Mcfarland no aspirin. Meclizine 25 mg by mouth every 8 hours when necessary vertigo which improved vertigo so continue with meclizine PRN. Continue home med Oxycodone as needed for pain. Tight blood pressure control due to hemorrhage. At the time of discharge patient blood pressure was within normal limits. Hypertension Initially patient was put on the Cardene drip which was tapered off. He was then started on carvedilol, amlodipine and hydralazine. Blood pressure was controlled with this regimen. Mild leukocytosis -no signs of infection. Type 2 diabetes -Hemoglobin A1c 7. He will need a repeat hemoglobin A1c to confirm the diagnosis diabetes. Patient educated extensively on diabetic diet, complications of diabetes, and weight loss. He was told to follow-up with his primary care regards to this. Pt Condition on Discharge: Good Discharge Disposition: Discharge Home Discharge Time: <= 30 minutes Discharge Instructions DIET: Follow Instructions for: Heart Healthy Diet, Diabetic Diet Activities you can perform: Regular-No Restrictions Follow up Referrals: Neurology - 2 Weeks with Lady Vaz MD PCP Follow-up - 1 Week New Medications: [id number]-[id number]-Xbqxjwcz (Fioricet) 50-300-40 Mg Cap 1-2 CAP PO Q6H PRN HEADACHE #20 Ref 0 CAP Amlodipine (Norvasc) 10 Mg Tab 10 MG PO DAILY hypertension #30 Ref 0 TAB Carvedilol (Coreg) 12.5 Mg Tab 12.5 MG PO Q12HR hypertension #60 Ref 0 TAB Hydralazine (Hydralazine) 100 Mg Tab 100 MG PO Q8HR hypertension #90 Ref 0 TAB Meclizine HCl (Meclizine 25) 25 Mg Tab 25 MG PO Q6H PRN VERTIGO #30 Ref 0 TAB Mahi Chiang MD July 26, 2016 10:42
--- NOTE | 2016-07-26 10:42 | HHI.DCPOC ---
Discharge Care Plan Diagnosis: (1) ICH (intracerebral hemorrhage) (2) Hypertension (3) Vertigo (4) Headache (5) Diabetes Goals to Promote Your Health * To prevent worsening of your condition and complications * To maintain your health at the optimal level Directions to Meet Your Goals Take your medications as prescribed Follow your dietary instruction Follow activity as directed Keep your appointments as scheduled Take your immunizations and boosters as scheduled If your symptoms worsen call your PCP, if no PCP go to Urgent Care Center or Emergency Room Smoking is Dangerous to Your Health. Avoid second hand smoke Call the 24-hour hour crisis hotline for domestic abuse at Mahi Chiang MD July 26, 2016 10:42
[2016-07-26 12:00] VITALS: BP 126/75; PULSE 77; RESP 18; TEMP 98.8; O2SAT 94
== END 2016-07-26 13:31 | disposition home or self-care (01) | DRG 66 ==
LOC: PHED 19:42 → PHEDA 23:25 → N03A 07-24 01:26 → N05B 07-25 22:38
PROVIDERS: ADMIT Emergency Medicine; ATTEND Family Medicine
DX: I61.9 Nontraumatic intracerebral hemorrhage, unspecified (principal); E11.65 Type 2 diabetes mellitus with hyperglycemia; I10 Essential (primary) hypertension; G43.909 Migraine, unspecified, not intractable, without status migrainosus; D72.829 Elevated white blood cell count, unspecified; R42 Dizziness and giddiness; E66.9 Obesity, unspecified; Z68.35 Body mass index [BMI] 35.0-35.9, adult; Z71.3 Dietary counseling and surveillance
CPT/HCPCS: 70450; 70544; 70548; 70553; 71010; 80048; 80053; 80061; 83036; 84484; 85025; 85027; 85610; 85652; 85730; 87641; 93005; 96361; 96374; A9579; C9113; J0360; J2405; J2930; J7030; J7050

== ENCOUNTER 2017-12-07 19:33 | Observation (INO) ==
[2017-12-07] MEDS ORDERED: Sod Chloride 0.9% Inj 1,000 ML IV.CONT SCH (19:45)
--- NOTE | 2017-12-07 19:46 | ED ---
HPI General Chief Complaint: Stroke Alert Stated Complaint: Stroke alert Time Seen by Provider: 12/07/17 19:53 Source: patient Mode of arrival: EMS Limitations: no limitations History of Present Illness HPI Narrative: EMS brought patient in as a stroke alert, patient has been experiencing headache and dizziness since 1:30 PM. The patient stated that this feels just exactly the same way that he when he developed a brain bleed in the past. Patient denies being on any anticoagulants......blair NICOLE Complaint: Reports headache Onset (ago): hour(s) (7p) Onset description: gradual Location: Reports diffuse Relieving factors: nothing Exacerbating factors: none Context: Reports occurred at rest Associated symptoms: Reports none Treatments prior to arrival: Reports none Related Data Home Medications Medication Instructions Recorded Confirmed lisinopril 10 mg PO DAILY 12/07/17 12/07/17 Previous Rx's Medication Instructions Recorded meclizine 25 mg PO TID PRN #60 tab 12/08/17 Allergies Allergy/AdvReac Type Severity Reaction Status Date / Time naproxen Allergy Mild Swelling Verified 12/07/17 19:50 Review of Systems ROS: all other systems reviewed are negative PMFSH History History Provided By: Patient Medical History Medical History Brain bleed (Acute) History of torn meniscus of left knee (Acute) Surgical History Surgical History H/O discectomy (Acute) Family History Family History Other Family history normal Social History Social History Substance History: No History of Abuse Second Hand Smoke Exposure: No Smoking Status: Never smoker How Often Do You Have a Drink Containing Alcohol: Never Recent Travel in [place] within the Last 8 Weeks: No Recent Out of Country Travel within the Last 8 Weeks: No Exam Narrative Exam Narrative: GENERAL: Well-nourished, well-developed patient in no apparent distress. SKIN: Warm and dry. HEAD: Atraumatic. Normocephalic. EYES: Pupils equal and round. No scleral icterus. No injection or drainage. ENT: No nasal bleeding or discharge. Mucous membranes pink and moist. NECK: Trachea midline. No JVD. CARDIOVASCULAR: Regular rate and rhythm. no rubs or gallops RESPIRATORY: No accessory muscle use. Clear to auscultation. Breath sounds equal bilaterally. GASTROINTESTINAL: Abdomen soft, non-tender, nondistended. No rebound or guarding MUSCULOSKELETAL: Extremities without clubbing, cyanosis, or edema. No obvious deformities. NEUROLOGICAL: Awake and alert. No obvious cranial nerve deficits. Motor grossly within normal limits. Five out of 5 muscle strength in the arms and legs. Normal speech. PSYCHIATRIC: Appropriate mood and affect; insight and judgment normal. Course Initial Documented Vital Signs Pulse Oximetry 96 12/07/17 19:33 Last Documented Vital Signs Temperature 97.6 F 12/09/17 12:00 Pulse Rate 73 12/09/17 12:00 Respiratory Rate 18 12/09/17 12:00 Blood Pressure 140/82 12/09/17 12:00 Pulse Oximetry 95 12/09/17 12:00 Critical Care Time Critical Care Time: Yes Total Critical Care Time: 30 Attestation: Aggregate critical care time was 30 minutes. Time to perform other separately billable procedures was not included in the critical care time. My time did not include minutes spent treating any other patients simultaneously or on activities that did not directly contribute to the patient's treatment. The services I provided to this patient were to treat and/or prevent clinically significant deterioration I provided critical care services requiring my management, as noted below: Chart data review, documentation time, medication orders and management, vital sign assessments/reviewing monitor data, ordering and reviewing lab tests, ordering and interpreting/reviewing x-rays and diagnostic studies, care of the patient and discussion of the patient with the admitting physicians. Medical Decision Making MDM Narrative Medical decision making narrative: neuro dr riggins aware, agrees that pt is not tpa candidate due to outside window and previous hemorrhagic cva Medical Screen Exam Complete: Yes Emergency Medical Condition: Yes Differential Diagnosis Differential Diagnosis: ich v cva v tia Medical Records Medical records reviewed: Yes I reviewed the patient's medical records. Lab Data Lab results reviewed: Yes I reviewed the patient's lab results. Result diagrams: 12/07/17 19:10 12/08/17 06:19 Lab Results 12/07/17 12/07/17 12/07/17 Range/Units 19:10 19:10 19:10 WBC 9.5 (4.0-11.0) th/mm3 RBC 5.19 (4.50-5.90) mil/mm3 Hgb 15.5 (13.0-17.0) gm/dL POC Hgb (Calc) 16.0 (13.0-17.0) g/dL Hct 46.7 (39.0-51.0) % POC Hct 47.0 (39-51.0) % MCV 90.0 (80.0-100.0) fL MCH 29.9 (27.0-34.0) pg MCHC 33.2 (32.0-36.0) % RDW 14.2 (11.6-17.2) % Plt Count 268 (150-450) th/mm3 MPV 7.5 (7.0-11.0) fL Neut % (Auto) 57.4 (16.0-70.0) % Lymph % (Auto) 32.7 (9.0-44.0) % Clinch % (Auto) 8.8 H (0.0-8.0) % Eos % (Auto) 0.7 (0.0-4.0) % Baso % (Auto) 0.4 (0.0-2.0) % Neut # (Auto) 5.5 (1.8-7.7) th/mm3 Lymph # (Auto) 3.1 (1.0-4.8) th/mm3 Clinch # (Auto) 0.8 (0.0-0.9) th/mm3 Eos # (Auto) 0.1 (0.0-0.4) th/mm3 Baso # (Auto) 0.0 (0.0-0.2) th/mm3 WBC Differential . Differential Comment Auto diff final PT 9.5 L (9.8-11.6) sec INR 0.9 Ratio APTT 30.3 H (24.3-30.1) sec POC Sodium 143 (137-144) mmol/L Sodium 141 (136-145) meq/L POC Potassium 4.0 (3.6-5.0) mmol/L Potassium 3.9 (3.5-5.1) meq/L POC Chloride 103 (102-111) mmol/L Chloride 105 (98-107) meq/L Carbon Dioxide 27.1 (21.0-32.0) meq/L Anion Gap 9 (5-15) meq/L POC BUN 19 (5-21) mg/dL BUN 18 (7-18) mg/dL Creatinine 1.00 (0.60-1.30) mg/dL POC Creatinine 0.9 (0.6-1.3) mg/dL Estimated GFR 75 L (>89) mL/min POC Glucose 105 (68-110) mg/dL Random Glucose 101 (74-106) mg/dL Hemoglobin A1c (4.3-6.0) % Calcium 8.8 (8.5-10.1) mg/dL Total Creatine Kinase 200 (39-308) U/L CK-MB (CK-2) 3.6 (0.5-3.6) ng/mL Troponin I Less than 0.02 L (0.02-0.05) ng/mL Triglycerides (42-150) mg/dL Cholesterol (120-200) mg/dL LDL Cholesterol, Calc (0-99) mg/dL HDL Cholesterol (40.0-60.0) mg/dL Cholesterol/HDL Ratio Ratio Urine Color (Yellw/Straw) Urine Clarity (Clear) Urine pH (5.0-8.5) Ur Specific [place] (1.002-1.035) Urine Protein (Neg-Trace) mg/dL Urine Glucose (UA) (Negative) mg/dL Urine Ketones (Negative) mg/dL Urine Occult Blood (Negative) Urine Nitrate (Negative) Urine Bilirubin (Negative) Urine Urobilinogen (Less than 2) mg/dL Ur Leukocyte Esterase (Negative) Urine RBC (0-3) /hpf Urine WBC (0-5) /hpf Micro UA Comment Ur Microscopic Review Urine Culture Comments Urine Opiates Screen (Neg) Ur Barbiturates Screen (Neg) Ur Amphetamines Screen (Neg) U Benzodiazepines Scrn (Neg) Urine Cocaine Screen (Neg) U Cannabinoids Screen (Neg) 12/07/17 12/07/17 12/08/17 Range/Units 21:37 21:37 06:19 WBC (4.0-11.0) th/mm3 RBC (4.50-5.90) mil/mm3 Hgb (13.0-17.0) gm/dL POC Hgb (Calc) (13.0-17.0) g/dL Hct (39.0-51.0) % POC Hct (39-51.0) % MCV (80.0-100.0) fL MCH (27.0-34.0) pg MCHC (32.0-36.0) % RDW (11.6-17.2) % Plt Count (150-450) th/mm3 MPV (7.0-11.0) fL Neut % (Auto) (16.0-70.0) % Lymph % (Auto) (9.0-44.0) % Clinch % (Auto) (0.0-8.0) % Eos % (Auto) (0.0-4.0) % Baso % (Auto) (0.0-2.0) % Neut # (Auto) (1.8-7.7) th/mm3 Lymph # (Auto) (1.0-4.8) th/mm3 Clinch # (Auto) (0.0-0.9) th/mm3 Eos # (Auto) (0.0-0.4) th/mm3 Baso # (Auto) (0.0-0.2) th/mm3 WBC Differential Differential Comment PT (9.8-11.6) sec INR Ratio APTT (24.3-30.1) sec POC Sodium (137-144) mmol/L Sodium 142 (136-145) meq/L POC Potassium (3.6-5.0) mmol/L Potassium 4.0 (3.5-5.1) meq/L POC Chloride (102-111) mmol/L Chloride 107 (98-107) meq/L Carbon Dioxide 25.7 (21.0-32.0) meq/L Anion Gap 9 (5-15) meq/L POC BUN (5-21) mg/dL BUN 14 (7-18) mg/dL Creatinine 0.96 (0.60-1.30) mg/dL POC Creatinine (0.6-1.3) mg/dL Estimated GFR 78 L (>89) mL/min POC Glucose (68-110) mg/dL Random Glucose 113 H (74-106) mg/dL Hemoglobin A1c (4.3-6.0) % Calcium 8.2 L (8.5-10.1) mg/dL Total Creatine Kinase (39-308) U/L CK-MB (CK-2) (0.5-3.6) ng/mL Troponin I (0.02-0.05) ng/mL Triglycerides 136 (42-150) mg/dL Cholesterol 176 (120-200) mg/dL LDL Cholesterol, Calc 109 H (0-99) mg/dL HDL Cholesterol 40.1 (40.0-60.0) mg/dL Cholesterol/HDL Ratio 4.38 Ratio Urine Color Yellow (Yellw/Straw) Urine Clarity Clear (Clear) Urine pH 7.0 (5.0-8.5) Ur Specific [place] 1.024 (1.002-1.035) Urine Protein Negative (Neg-Trace) mg/dL Urine Glucose (UA) Negative (Negative) mg/dL Urine Ketones Negative (Negative) mg/dL Urine Occult Blood Negative (Negative) Urine Nitrate Negative (Negative) Urine Bilirubin Negative (Negative) Urine Urobilinogen Less than 2 (Less than 2) mg/dL Ur Leukocyte Esterase Negative (Negative) Urine RBC Less than 1 (0-3) /hpf Urine WBC Less than 1 (0-5) /hpf Micro UA Comment Culture not ind Ur Microscopic Review Not Reportable Urine Culture Comments Culture not ind Urine Opiates Screen Neg (Neg) Ur Barbiturates Screen Pos H (Neg) Ur Amphetamines Screen Neg (Neg) U Benzodiazepines Scrn Neg (Neg) Urine Cocaine Screen Neg (Neg) U Cannabinoids Screen Neg (Neg) 12/08/17 Range/Units 06:19 WBC (4.0-11.0) th/mm3 RBC (4.50-5.90) mil/mm3 Hgb (13.0-17.0) gm/dL POC Hgb (Calc) (13.0-17.0) g/dL Hct (39.0-51.0) % POC Hct (39-51.0) % MCV (80.0-100.0) fL MCH (27.0-34.0) pg MCHC (32.0-36.0) % RDW (11.6-17.2) % Plt Count (150-450) th/mm3 MPV (7.0-11.0) fL Neut % (Auto) (16.0-70.0) % Lymph % (Auto) (9.0-44.0) % Clinch % (Auto) (0.0-8.0) % Eos % (Auto) (0.0-4.0) % Baso % (Auto) (0.0-2.0) % Neut # (Auto) (1.8-7.7) th/mm3 Lymph # (Auto) (1.0-4.8) th/mm3 Clinch # (Auto) (0.0-0.9) th/mm3 Eos # (Auto) (0.0-0.4) th/mm3 Baso # (Auto) (0.0-0.2) th/mm3 WBC Differential Differential Comment PT (9.8-11.6) sec INR Ratio APTT (24.3-30.1) sec POC Sodium (137-144) mmol/L Sodium (136-145) meq/L POC Potassium (3.6-5.0) mmol/L Potassium (3.5-5.1) meq/L POC Chloride (102-111) mmol/L Chloride (98-107) meq/L Carbon Dioxide (21.0-32.0) meq/L Anion Gap (5-15) meq/L POC BUN (5-21) mg/dL BUN (7-18) mg/dL Creatinine (0.60-1.30) mg/dL POC Creatinine (0.6-1.3) mg/dL Estimated GFR (>89) mL/min POC Glucose (68-110) mg/dL Random Glucose (74-106) mg/dL Hemoglobin A1c 6.2 H (4.3-6.0) % Calcium (8.5-10.1) mg/dL Total Creatine Kinase (39-308) U/L CK-MB (CK-2) (0.5-3.6) ng/mL Troponin I (0.02-0.05) ng/mL Triglycerides (42-150) mg/dL Cholesterol (120-200) mg/dL LDL Cholesterol, Calc (0-99) mg/dL HDL Cholesterol (40.0-60.0) mg/dL Cholesterol/HDL Ratio Ratio Urine Color (Yellw/Straw) Urine Clarity (Clear) Urine pH (5.0-8.5) Ur Specific [place] (1.002-1.035) Urine Protein (Neg-Trace) mg/dL Urine Glucose (UA) (Negative) mg/dL Urine Ketones (Negative) mg/dL Urine Occult Blood (Negative) Urine Nitrate (Negative) Urine Bilirubin (Negative) Urine Urobilinogen (Less than 2) mg/dL Ur Leukocyte Esterase (Negative) Urine RBC (0-3) /hpf Urine WBC (0-5) /hpf Micro UA Comment Ur Microscopic Review Urine Culture Comments Urine Opiates Screen (Neg) Ur Barbiturates Screen (Neg) Ur Amphetamines Screen (Neg) U Benzodiazepines Scrn (Neg) Urine Cocaine Screen (Neg) U Cannabinoids Screen (Neg) Imaging Data Radiologist's impression: Head CT 12/07/17 19:40 CONCLUSION: 1. No acute findings in the brain. 2. 5 mm calcification in the left lateral thalamus at site of prior hemorrhage in June 2016. Report was called to Dr. Smith at 7:54 PM. Head CTA 12/07/17 19:40 CONCLUSION: 1. Negative CTA standing [place] of [place]. Neck CTA 12/07/17 19:40 CONCLUSION: 1. Negative CTA carotids. Head MRI 12/07/17 22:07 CONCLUSION: 1. No evidence of acute infarction. 2. Small old hemorrhage in the left thalamus and stable solitary area of T2 prolongation in the posterior right low convexity parietal cortex, unchanged from June 2016. Head MRA 12/07/17 22:07 CONCLUSION: No acute intracranial vascular abnormality is identified. Discharge Plan Discharge Disposition Patient Disposition: 30 Still Patient Discharge Condition Condition: Stable Discharge Order Discharge Orders: Discharge Order (Routine); Ordered 12/09/17 Ordered By: Stacy Weber Discharge Details Anticipated Discharge Date: 12/08/17 Diagnosis: Dizziness Physicians Team ED Provider: Justice Smith Primary Care Provider: Primary Care Samueli,Nanette Attending Provider: Stacy Weber Other Providers: David Carter ; [facility],Insurance Discharge Interventions Interventions: ED Discharge Assessment Last Done: 12/08/17 02:33 Status ED Status: Left Department Discharge Information Discharge Date/Time: 12/08/17 02:34
[2017-12-07 19:58] LABS: Baso % (Auto) 0.4 % (0.0-2.0); Eos # (Auto) 0.1 th/mm3 (0.0-0.4); Eos % (Auto) 0.7 % (0.0-4.0); Hematocrit 46.7 % (39.0-51.0); Hemoglobin 15.5 gm/dL (13.0-17.0); Lymph # (Auto) 3.1 th/mm3 (1.0-4.8); Lymph % (Auto) 32.7 % (9.0-44.0); Mean Corpuscular HGB Conc 33.2 % (32.0-36.0); Mean Corpuscular Hemoglobin 29.9 pg (27.0-34.0); Mean Platelet Volume 7.5 fL (7.0-11.0); Mono # (Auto) 0.8 th/mm3 (0.0-0.9); Mono % (Auto) 8.8 % (0.0-8.0); Neut # (Auto) 5.5 th/mm3 (1.8-7.7); Neut % (Auto) 57.4 % (16.0-70.0); Platelet Count 268 th/mm3 (150-450); Red Blood Count 5.19 mil/mm3 (4.50-5.90); Red Cell Distribution Width 14.2 % (11.6-17.2); White Blood Count 9.5 th/mm3 (4.0-11.0)
--- NOTE | 2017-12-07 19:58 | CT ---
EXAM DATE: 12/07/2017 7:43 PM EDT AGE/SEX: 67 years / Male INDICATIONS: Slurred speech headache and vertigo CLINICAL DATA: This is the patient's initial encounter. Patient reports that signs and symptoms have been present for 1 day and indicates a pain score of 3/10. MEDICAL/SURGICAL HISTORY: . unable to obtain . unable to obtain RADIATION DOSE: 56.82 CTDI (mGy) COMPARISON: [facility], [place] BRAIN W/O CONTRAST, 07[place]23[place]2016. [facility] [place] 07/25/2016. . TECHNIQUE: CT of the head without contrast. Using automated exposure control and adjustment of the mA and/or kV according to patient size, radiation dose was kept as low as reasonably achievable to ob tain optimal diagnostic quality images. DICOM format image data is available electronically for revi ew and comparison. FINDINGS: Cerebrum: The ventricles are normal for age. No evidence of midline shift, mass lesion, acute hemor rhage or acute infarction. There is a focal 5 mm hyperdensity in the lateral left thalamus which was present on prior CT and MR in June 2016 and had features characteristic of a hemorrhage. No extraaxia l fluid collections are seen. Posterior Fossa: The cerebellum and brainstem are intact. The 4th ventricle is midline. The cerebe llopontine angle is unremarkable. Extracranial: The visualized portion of the orbits is intact. Skull: The calvaria is intact. No evidence of skull fracture. CONCLUSION: 1. No acute findings in the brain. 2. 5 mm calcification in the left lateral thalamus at site of prior hemorrhage in June 2016. Report was called to Dr. Smith at 7:54 PM. Electronically signed by: Patricio Reynoso MD 12/07/2017 7:57 PM EDT
--- NOTE | 2017-12-07 20:06 | CT ---
EXAM DATE: 12/07/2017 7:43 PM EDT AGE/SEX: 67 years / Male INDICATIONS: Slurred speech headache vertigo CLINICAL DATA: This is the patient's initial encounter. Patient reports that signs and symptoms have been present for 1 day and indicates a pain score of 3/10. MEDICAL/SURGICAL HISTORY: . unable to obtain . unable to obtain RADIATION DOSE: 10.94 CTDI (mGy) ; Combined studies [place]PAR[place]: [facility] [place], 12/07/2017. [facility] [place]/O [place], 07/25/2016. . TECHNIQUE: Volumetric scanning was performed using a multi-row detector CT scanner during bolus infu michael of 98 ml Visipaque 320 (iodixanol) nonionic water-soluble contrast as a cumulative dose for mul tiple exams. The data was post processed with a variety of visualization algorithms including full volume maximum intensity projection, multi-planar sliding thin slab reformation, curved planar reform ation, and surface rendering techniques. Using automated exposure control and adjustment of the mA a nd/or kV according to patient size, radiation dose was kept as low as reasonably achievable to obtain optimal diagnostic quality images. DICOM format image data is available electronically for review a nd comparison. FINDINGS: There is excellent visualization of the major intracranial arteries out to the second-order branch ve ssels. There is no evidence for aneurysm, vessel truncation or stenosis, and no evidence for vascula r malformation. Flow seen in both PCOM. CONCLUSION: 1. Negative CTA [place] of [place]. Electronically signed by: Patricio Reynoso MD 12/07/2017 8:05 PM EDT
[2017-12-07 20:09] LABS: Activated Partial Thrombo Time 30.3 sec (24.3-30.1); INR 0.9 Ratio; Prothrombin Time 9.5 sec (9.8-11.6)
[2017-12-07 20:17] LABS: Anion Gap 9 meq/L (5-15); Blood Urea Nitrogen 18 mg/dL (7-18); Calcium 8.8 mg/dL (8.5-10.1); Carbon Dioxide 27.1 meq/L (21.0-32.0); Chloride 105 meq/L (98-107); Glomerular Filtration Rate 75 mL/min (>89); Glucose,Random 101 mg/dL (74-106); Potassium 3.9 meq/L (3.5-5.1); Sodium 141 meq/L (136-145)
[2017-12-07 20:22] LABS: Creatine Kinase 200 U/L (39-308)
[2017-12-07 20:34] LABS: Creatine Kinase MB 3.6 ng/mL (0.5-3.6)
--- NOTE | 2017-12-07 21:01 | CT ---
EXAM DATE: 12/07/2017 7:43 PM EDT AGE/SEX: 67 years / Male INDICATIONS: Slurred speech vertigo headache CLINICAL DATA: This is the patient's initial encounter. Patient reports that signs and symptoms have been present for 1 day and indicates a pain score of 3/10. MEDICAL/SURGICAL HISTORY: . unable to obtain . unable to obtain RADIATION DOSE: 10.94 CTDI (mGy) ; Combined studies COMPARISON: No prior exams available for comparison. TECHNIQUE: Volumetric scanning was performed using a multirow detector CT scanner during bolus infus ion of 98 ml Visipaque 320 (iodixanol) nonionic water-soluble contrast as a cumulative dose for mult iple exams. The data was postprocessed with a variety of visualization algorithms including full-vo lume maximum intensity projection, multiplanar sliding thin-slab reformation, curved-planar reformati on, and surface-rendering techniques. Using automated exposure control and adjustment of the mA and/ or kV according to patient size, radiation dose was kept as low as reasonably achievable to obtain op timal diagnostic quality images. DICOM format image data is available electronically for review and comparison. FINDINGS: Aortic Arch: There is a three-vessel origin of the great vessels from the aorta. No evidence of ost ial narrowing Right Carotid: The common carotid artery is intact. The carotid bulb has a normal configuration wit hout ulceration or narrowing. The internal carotid artery lumen is smooth without stenosis. The ext ernal carotid artery is intact. Left Carotid: The common carotid artery is intact. The carotid bulb has a normal configuration with out ulceration or narrowing. The internal carotid artery lumen is smooth without stenosis. The exte rnal carotid artery is intact. Vertebrals: The vertebral arteries have a symmetric diameter. No stenotic lesions are seen. Percent stenosis is calculated using the diameter of the stenotic region over the diameter of the nor mal distal internal carotid artery. CONCLUSION: 1. Negative CTA carotids. Electronically signed by: Patricio Reynoso MD 12/07/2017 9:00 PM EDT
[2017-12-07 22:12] LABS: Bilirubin,Urine Negative (Negative); Clarity,Urine Clear (Clear); Color,Urine Yellow (Yellw/Straw); Glucose,Urine (UA) Negative (Negative); Leukocyte Esterase,Urine Negative (Negative); Nitrite,Urine Negative (Negative); Specific Gravity,Urine 1.024 (1.002-1.035)
--- NOTE | 2017-12-07 22:15 | P.HP ---
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 The patient reports his symptoms started at 1230 today. He had slurred speech that is slowly improving. He endorses a headache. He denies facial droop or focal weakness. The patient reports the vertigo is similar to his hemorrhagic stroke in the past. He denies any chest pain or shortness of breath. No abdominal pain. No nausea/vomiting/diarrhea. No fevers or chills. Inpatient Certification: I certify that the inpatient services were ordered in accordance with Medicare regulations governing the order. This includes certification that hospital inpatient services are reasonable and necessary and in the case of services not specified as inpatient-only under 42 CFR 419.22(n), that they are appropriately provided as inpatient services in accordance to with the 2-midnight benchmark under 43 CFR 412.3(e) Review of Systems All other systems reviewed negative except as stated in HPI PMFSH - History History Provided By: Patient - Medical History Medical History: Medical History (Last Reviewed 12/07/17 @ 22:12 by Temitope Duncan MD) Brain bleed History of torn meniscus of left knee - Surgical History Surgical History: Surgical History (Last Reviewed 12/07/17 @ 22:12 by Temitope Duncan MD) H/O discectomy - Family History Family History: Family History (Last Updated 12/07/17 @ 22:13 by Temitope Duncan MD) Other Family history normal - Tobacco History Second Hand Smoke Exposure: No Smoking Status: Never smoker - Alcohol History How Often Do You Have a Drink Containing Alcohol: Never - Substance Use History Substance History: No History of Abuse - Travel History Recent Travel in the [place] Within the Last 8 Weeks: No Recent Travel Out of the Country Within the Last 8 Weeks: No - Immunization History Tetanus Immunization: Unsure Medications and Allergies Active Medications: Active Medications Sodium Chloride (Ns Inj) 1,000 mls @ 70 mls/hr IV.CONT .[id number] ALEX Stop: 12/08/17 10:02 Last Admin: 12/07/17 20:33 Dose: 70 mls/hr Sodium Chloride (Ns Flush) 2 ml IV.FLUSH PRN PRN PRN Reason: FLUSH AFTER USING IV ACCESS Last Admin: 12/07/17 20:33 Dose: 2 ml Allergies Allergy/AdvReac Type Severity Reaction Status Date / Time naproxen Allergy Mild Swelling Verified 12/07/17 19:50 Home Medications Medication Instructions Recorded Confirmed Type lisinopril 10 mg PO DAILY 12/07/17 12/07/17 History Exam Vital signs: Vital Signs 12/07/17 19:44 12/07/17 20:30 12/07/17 21:00 Temperature 98.8 F Pulse Rate 67 65 64 Respiratory Rate 16 16 16 Blood Pressure 162/82 H 157/81 H 143/83 H Pulse Oximetry 99 97 94 L 12/07/17 21:32 Temperature Pulse Rate 65 Respiratory Rate 16 Blood Pressure 143/84 H Pulse Oximetry 97 Intake & Output 12/07/17 12/07/17 12/08/17 06:59 18:59 06:59 Weight 101.9 kg Narrative: Gen.: No acute distress Head: Normocephalic. Atraumatic. EENT: Pupils equal round and reactive to light. Horizontal nystagmus noted. Nose without drainage. Airway intact. Throat without injection. Cardiovascular: Regular rate and rhythm. No murmurs, rubs or gallops. Respiratory: Lungs clear to auscultation bilaterally. No wheezes or rhonchi. Abdomen: Soft, nontender, nondistended. No peritoneal signs. Musculoskeletal: No gross deformities. No edema. Skin: No obvious rashes or erythema. Neuro: Sensory and motor grossly intact. Cranial nerves II through XII grossly intact. Results - Labs CBC & Chem 7: 12/07/17 19:10 12/07/17 19:10 Labs: Laboratory Results - last 24 hr 12/07/17 12/07/17 12/07/17 19:10 19:10 19:10 WBC 9.5 RBC 5.19 Hgb 15.5 POC Hgb (Calc) 16.0 Hct 46.7 POC Hct 47.0 MCV 90.0 MCH 29.9 MCHC 33.2 RDW 14.2 Plt Count 268 MPV 7.5 Neut % (Auto) 57.4 Lymph % (Auto) 32.7 [place] % (Auto) 8.8 H Eos % (Auto) 0.7 Baso % (Auto) 0.4 Neut # (Auto) 5.5 Lymph # (Auto) 3.1 [place] # (Auto) 0.8 Eos # (Auto) 0.1 Baso # (Auto) 0.0 WBC Differential . Differential Comment Auto diff final PT 9.5 L INR 0.9 APTT 30.3 H POC Sodium 143 Sodium 141 POC Potassium 4.0 Potassium 3.9 POC Chloride 103 Chloride 105 Carbon Dioxide 27.1 Anion Gap 9 POC BUN 19 BUN 18 Creatinine 1.00 POC Creatinine 0.9 Estimated GFR 75 L POC Glucose 105 Random Glucose 101 Calcium 8.8 Total Creatine Kinase 200 CK-MB (CK-2) 3.6 Troponin I Less than 0.02 L - Imaging Impressions Head CT 12/07/17 19:40 CONCLUSION: 1. No acute findings in the brain. 2. 5 mm calcification in the left lateral thalamus at site of prior hemorrhage in June 2016. Report was called to Dr. Smith at 7:54 PM. Head CTA 12/07/17 19:40 CONCLUSION: 1. Negative CTA [id number]. Neck CTA 12/07/17 19:40 CONCLUSION: 1. Negative CTA carotids. Caprini VTE Risk Assessment Caprini VTE Risk Assessment: Moderate/High Risk (score >= 2) VTE Pharmacological Exception Reason: Hemorrhage Caprini Risk Assessment Model: Point Value = 1 Point Value = 2 Point Value = 3 Point Value = 5 Age 41-60 Minor surgery BMI > 25 kg/m2 Swollen legs Varicose veins or History of unexplained or recurrent spontaneous Oral contraceptives or hormone replacement Sepsis (< 1 month) Serious lung disease, including pneumonia (< 1 month) Abnormal pulmonary function Acute myocardial infarction Congestive heart failure (< 1 month) History of inflammatory bowel disease Medical patient at bed rest Age 61-74 Arthroscopic surgery Major open surgery (> 45 min) Laparoscopic surgery (> 45 min) Malignancy Confined to bed (> 72 hours) Immobilizing plaster cast Central venous access Age >= 75 History of VTE Family history of VTE Factor V Leiden Prothrombin [id number] Lupus anticoagulant Anticardiolipin antibodies Elevated serum homocysteine Heparin-induced thrombocytopenia Other congenital or acquired thrombophilia Stroke (< 1 month) Elective arthroplasty Hip, pelvis, or leg fracture Acute spinal cord injury (< 1 month) Prophylaxis Regimen: Total Risk Factor Score Risk Level Prophylaxis Regimen 0-1 Low Early ambulation 2 Moderate Order ONE of the following: *Sequential Compression Device (SCD) *Heparin 5000 units SQ BID 3-4 Higher Order ONE of the following medications: *Heparin 5000 units SQ TID *Enoxaparin/Lovenox 40 mg SQ daily (WT < 150 kg, CrCl > 30 mL/min) *Enoxaparin/Lovenox 30 mg SQ daily (WT < 150 kg, CrCl > 10-29 mL/min) *Enoxaparin/Lovenox 30 mg SQ BID (WT < 150 kg, CrCl > 30 mL/min) AND/OR *Sequential Compression Device (SCD) 5 or more Highest Order ONE of the following medications: *Heparin 5000 units SQ TID (Preferred with Epidurals) *Enoxaparin/Lovenox 40 mg SQ daily (WT < 150 kg, CrCl > 30 mL/min) *Enoxaparin/Lovenox 30 mg SQ daily (WT < 150 kg, CrCl > 10-29 mL/min) *Enoxaparin/Lovenox 30 mg SQ BID (WT < 150 kg, CrCl > 30 mL/min) AND *Sequential Compression Device (SCD) Assessment and Plan - Plan Assessment/plan: 1. ?CVA CT negative for acute process MRI/MRA/carotid ultrasound pending Neurology consulted, appreciate recommendations Neuro checks FEN N.p.o. Electrolytes: Urine replete as needed NS at 70 cc/hour Holding pharmacologic anticoagulation for history of hemorrhagic stroke
[2017-12-07 22:17] LABS: Amphetamine Screen,Urine Neg (Neg); Barbiturate Screen,Urine Pos (Neg); Cannabinoid Screen,Urine Neg (Neg); Cocaine Screen,Urine Neg (Neg)
[2017-12-07 22:18] LABS: Opiate Screen,Urine Neg (Neg)
--- NOTE | 2017-12-07 23:07 | MR ---
EXAM DATE: 12/07/2017 10:11 PM EDT AGE/SEX: 67 years / Male INDICATIONS: CVA. Vertigo for one day. CLINICAL DATA: This is the patient's initial encounter. Patient reports that signs and symptoms have been present for 1 day and indicates a pain score of 7/10. MEDICAL/SURGICAL HISTORY: Transient ischemic attack. . LSP sx, Lt knee sx. COMPARISON: [facility], MRI BRAIN W & W/O CONTRAST, 07/25/2016. [facility], CT HEAD W/O CONTRAST, 12/07/2017. . TECHNIQUE: Multiplanar, multisequence examination of the brain was performed without contrast. FINDINGS: Cerebrum: The ventricles are normal for age. No evidence of midline shift, mass lesion, hemorrhage or acute infarction. Focal signal change in the lateral left thalamus with associated susceptibility artifact characteristic of old blood products. There is a 4 mm rounded area of T2 prolongation in th e cortex of the right posterior sylvian low convexity region which is unchanged in appearance from pr ior MR in June 2016 (the was no enhancement in this lesion on prior MR). No extraaxial fluid collectio ns are seen. The pituitary gland and suprasellar cistern are normal in configuration. White Matter: No significant signal abnormalities are seen in the white matter. Posterior Fossa: The cerebellum and brainstem are intact. The 4th ventricle is midline. The cerebel lopontine angle is unremarkable. The cerebellar tonsils are normal in position. Diffusion Imaging: No focal areas of restricted diffusion are seen. No evidence of acute infarction . Extracranial: The visualized portions of the orbits and paranasal sinuses are unremarkable. CONCLUSION: 1. No evidence of acute infarction. 2. Small old hemorrhage in the left thalamus and stable solitary area of T2 prolongation in the post erior right low convexity parietal cortex, unchanged from June 2016. Electronically signed by: Patricio Reynoso MD 12/07/2017 11:05 PM EDT
--- NOTE | 2017-12-07 23:08 | MR ---
EXAM DATE: 12/07/2017 10:11 PM EDT AGE/SEX: 67 years / Male INDICATIONS: CVA. Vertigo for one day. CLINICAL DATA: This is the patient's initial encounter. Patient reports that signs and symptoms have been present for 1 day and indicates a pain score of 7/10. MEDICAL/SURGICAL HISTORY: Transient ischemic attack. . LSP sx, Lt knee sx. COMPARISON: [facility], CTA HEAD W CONTRAST W 3D, 12/07/2017. . TECHNIQUE: 3D [id number] MRA was performed. Source images, multiplanar STS MIP, and 3D volum e MIP reconstructions were reviewed. FINDINGS: There is excellent visualization of the major intracranial arteries out to the second-order branch ve ssels. There is no evidence for aneurysm, vessel truncation or stenosis, and no evidence for vascula r malformation. CONCLUSION: No acute intracranial vascular abnormality is identified. Electronically signed by: Evangelista Forte MD 12/07/2017 11:07 PM EDT
[2017-12-08] MEDS: Sod Chloride 0.9% Inj 1,000 ML IV.CONT SCH ×2 (01:16→13:27)
[2017-12-08 07:14] LABS: Calcium 8.2 mg/dL (8.5-10.1); Carbon Dioxide 25.7 meq/L (21.0-32.0)
[2017-12-08 07:17] LABS: Chol/HDL Ratio 4.38 Ratio; HDL Cholesterol 40.1 mg/dL (40.0-60.0)
[2017-12-08] MEDS ORDERED: Aspirin 325 MG Tablet PO SCH (09:00)
--- NOTE | 2017-12-08 09:04 | P.CONNEU ---
History of Present Illness Service: Neurology Primary Care Provider: No Primary Care Physician Family Provider: No Primary Care Physician History of Present Illness: [age]-year-old gentleman admitted for dizziness. States he had recurrent episode of vertigo spinning sensation. Improvement laying still worse when he sits up or turns his head side to side. He is concerned that he had a stroke. No focal weakness no vision loss no sensory symptoms feels well otherwise. No head or neck trauma. No ear fullness no hearing loss. He is not followed by PCP and currently not taking any medications. Is seen in 2017 for vertigo had a CAT scan which showed a questionable left thalamic bleed versus calcification. Review of Systems All other systems reviewed negative except as stated in HPI PMFSH - History History Provided By: Patient - Medical History Medical History: Medical History (Last Reviewed 12/08/17 @ 07:35 by Mika Arshad) Brain bleed History of torn meniscus of left knee - Surgical History Surgical History: Surgical History (Last Reviewed 12/08/17 @ 07:35 by Mika Arshad) H/O discectomy - Family History Family History: Family History (Last Updated 12/07/17 @ 22:13 by Temitope Duncan MD) Other Family history normal - Tobacco History Second Hand Smoke Exposure: No Smoking Status: Never smoker - Alcohol History How Often Do You Have a Drink Containing Alcohol: Never - Substance Use History Substance History: No History of Abuse - Travel History Recent Travel in the [place] Within the Last 8 Weeks: No Recent Travel Out of the Country Within the Last 8 Weeks: No - Immunization History Tetanus Immunization: Unsure Medications and Allergies Active Medications: Active Medications Sodium Chloride (Ns Inj) 1,000 mls @ 70 mls/hr IV.CONT .[id number] [facility] Stop: 12/08/17 10:02 Last Infusion: 12/08/17 00:02 Dose: 70 mls/hr Sodium Chloride (Ns Inj) 1,000 mls @ 70 mls/hr IV.CONT .[id number] ALEX Last Admin: 12/08/17 01:16 Dose: 70 mls/hr Sodium Chloride (Ns Flush) 2 ml IV.FLUSH BID ALEX Sodium Chloride (Ns Flush) 2 ml IV.FLUSH PRN PRN PRN Reason: FLUSH AFTER USING IV ACCESS Allergies Allergy/AdvReac Type Severity Reaction Status Date / Time naproxen Allergy Mild Swelling Verified 12/07/17 19:50 Home Medications Medication Instructions Recorded Confirmed Type lisinopril 10 mg PO DAILY 12/07/17 12/07/17 History Exam Vital signs: Vital Signs 12/07/17 19:33 12/07/17 19:44 12/07/17 20:30 Temperature 98.8 F Pulse Rate 67 65 Respiratory Rate 16 16 Blood Pressure 162/82 H 157/81 H Pulse Oximetry 96 99 97 12/07/17 21:00 12/07/17 21:32 12/07/17 23:07 Temperature Pulse Rate 64 65 66 Respiratory Rate 16 16 16 Blood Pressure 143/83 H 143/84 H 152/86 H Pulse Oximetry 94 L 97 12/08/17 00:45 12/08/17 01:00 12/08/17 02:00 Temperature 97.8 F Pulse Rate 63 66 56 L Respiratory Rate 16 16 Blood Pressure 144/92 H Pulse Oximetry 96 12/08/17 03:00 12/08/17 03:53 12/08/17 04:00 Temperature 98 F Pulse Rate 65 59 L 64 Respiratory Rate 16 Blood Pressure 138/85 Pulse Oximetry 95 12/08/17 05:00 12/08/17 06:00 Temperature Pulse Rate 64 67 Respiratory Rate Blood Pressure Pulse Oximetry Intake & Output 12/07/17 12/08/17 12/08/17 18:59 06:59 18:59 Intake Total 0 / 0 Output Total 800 / 800 Balance -800 / -800 Weight 101 kg Intake: Oral 0 / 0 Output: Urine 800 / 800 Other: # Bowel Movements 0 Narrative: GENERAL: in NAD, SKIN: Warm and dry. HEAD: Atraumatic. Normocephalic. EYES: Pupils equal and round. No scleral icterus. ENT: No nasal bleeding or discharge. Mucous membranes pink and moist. NECK: Trachea midline. No JVD. CARDIOVASCULAR: Regular rate and rhythm. RESPIRATORY: No accessory muscle use. GASTROINTESTINAL: Abdomen soft, non-tender, nondistended. MUSCULOSKELETAL: Extremities without clubbing, cyanosis, or edema. No obvious deformities. NEUROLOGICAL: Awake and alert. Oriented x3 no aphasia, fluent articulate, No facial asymmetry, OU 3-2mm, eomi, VFF, No drift, Motor grossly within normal limits. Five out of 5 muscle strength in the arms and legs. Tone normal in all 4 limbs, Sensory normal in all 4 extremities to pin, msr 1-2+ sym, head thrust test slightly positive towards the right PSYCHIATRIC: Appropriate mood and affect; insight and judgment normal. - Constitutional no acute distress - Routine HEENT Exam Head: Present: normocephalic Eye: Present: EOMI Results - Labs CBC & Chem 7: 12/07/17 19:10 12/08/17 06:19 Labs: Laboratory Results - last 24 hr 12/07/17 12/07/17 12/07/17 19:10 19:10 19:10 WBC 9.5 RBC 5.19 Hgb 15.5 POC Hgb (Calc) 16.0 Hct 46.7 POC Hct 47.0 MCV 90.0 MCH 29.9 MCHC 33.2 RDW 14.2 Plt Count 268 MPV 7.5 Neut % (Auto) 57.4 Lymph % (Auto) 32.7 [place] % (Auto) 8.8 H Eos % (Auto) 0.7 Baso % (Auto) 0.4 Neut # (Auto) 5.5 Lymph # (Auto) 3.1 [place] # (Auto) 0.8 Eos # (Auto) 0.1 Baso # (Auto) 0.0 WBC Differential . Differential Comment Auto diff final PT 9.5 L INR 0.9 APTT 30.3 H POC Sodium 143 Sodium 141 POC Potassium 4.0 Potassium 3.9 POC Chloride 103 Chloride 105 Carbon Dioxide 27.1 Anion Gap 9 POC BUN 19 BUN 18 Creatinine 1.00 POC Creatinine 0.9 Estimated GFR 75 L POC Glucose 105 Random Glucose 101 Calcium 8.8 Total Creatine Kinase 200 CK-MB (CK-2) 3.6 Troponin I Less than 0.02 L Triglycerides Cholesterol LDL Cholesterol, Calc HDL Cholesterol Cholesterol/HDL Ratio Urine Color Urine Clarity Urine pH Ur Specific [place] Urine Protein Urine Glucose (UA) Urine Ketones Urine Occult Blood Urine Nitrate Urine Bilirubin Urine Urobilinogen Ur Leukocyte Esterase Urine RBC Urine WBC Micro UA Comment Ur Microscopic Review Urine Culture Comments Urine Opiates Screen Ur Barbiturates Screen Ur Amphetamines Screen U Benzodiazepines Scrn Urine Cocaine Screen U Cannabinoids Screen 12/07/17 12/07/17 12/08/17 21:37 21:37 06:19 WBC RBC Hgb POC Hgb (Calc) Hct POC Hct MCV MCH MCHC RDW Plt Count MPV Neut % (Auto) Lymph % (Auto) [place] % (Auto) Eos % (Auto) Baso % (Auto) Neut # (Auto) Lymph # (Auto) [place] # (Auto) Eos # (Auto) Baso # (Auto) WBC Differential Differential Comment PT INR APTT POC Sodium Sodium 142 POC Potassium Potassium 4.0 POC Chloride Chloride 107 Carbon Dioxide 25.7 Anion Gap 9 POC BUN BUN 14 Creatinine 0.96 POC Creatinine Estimated GFR 78 L POC Glucose Random Glucose 113 H Calcium 8.2 L Total Creatine Kinase CK-MB (CK-2) Troponin I Triglycerides 136 Cholesterol 176 LDL Cholesterol, Calc 109 H HDL Cholesterol 40.1 Cholesterol/HDL Ratio 4.38 Urine Color Yellow Urine Clarity Clear Urine pH 7.0 Ur Specific [place] 1.024 Urine Protein Negative Urine Glucose (UA) Negative Urine Ketones Negative Urine Occult Blood Negative Urine Nitrate Negative Urine Bilirubin Negative Urine Urobilinogen Less than 2 Ur Leukocyte Esterase Negative Urine RBC Less than 1 Urine WBC Less than 1 Micro UA Comment Culture not ind Ur Microscopic Review Not Reportable Urine Culture Comments Culture not ind Urine Opiates Screen Neg Ur Barbiturates Screen Pos H Ur Amphetamines Screen Neg U Benzodiazepines Scrn Neg Urine Cocaine Screen Neg U Cannabinoids Screen Neg - Imaging Impressions Head CT 12/07/17 19:40 CONCLUSION: 1. No acute findings in the brain. 2. 5 mm calcification in the left lateral thalamus at site of prior hemorrhage in June 2016. Report was called to Dr. Smith at 7:54 PM. Head CTA 12/07/17 19:40 CONCLUSION: 1. Negative CTA [facility] [place]. Neck CTA 12/07/17 19:40 CONCLUSION: 1. Negative CTA carotids. Head MRI 12/07/17 22:07 CONCLUSION: 1. No evidence of acute infarction. 2. Small old hemorrhage in the left thalamus and stable solitary area of T2 prolongation in the posterior right low convexity parietal cortex, unchanged from June 2016. Head MRA 12/07/17 22:07 CONCLUSION: No acute intracranial vascular abnormality is identified. Review/Management - Diagnosis (1) Benign positional vertigo Code(s): H81.10 - Benign paroxysmal vertigo, unspecified ear Status: Acute Current Visit: Yes (2) Peripheral vestibulopathy Code(s): H81.90 - Unspecified disorder of vestibular function, unspecified ear Status: Acute Current Visit: Yes (3) Hypertension Code(s): I10 - Essential (primary) hypertension Status: Acute Current Visit : Yes - Review/Management Plan: Suspect positional vertigo MRI brain negative for acute stroke. MRA, CTA brain carotids negative I am also not certain that he had a thalamic bleed in the past may be a calcification. Recommendations Meclizine Vestibular therapy outpatient. Hospitalist can give the patient a prescription for vestibular therapy 3 times a week for 4-6 weeks Physical therapy evaluation Can be discharged from neurologic standpoint followed up in the outpatient setting with his primary care physician and neurology as necessary Blood pressure control Behavioral modification and risk factor reduction. Weight loss, blood pressure control, blood sugar control, lipid control. Exercise
--- NOTE | 2017-12-08 09:26 | P.PN ---
Subjective Interval history: Patient resting comfortably in bed. No changes in symptoms of vertigo over night. He wants something to drink. No other concerns at this time. Denies nausea, vomiting, headache, weakness, fever, chills. Physical Exam Vital signs: Vital Signs 12/07/17 19:33 12/07/17 19:44 12/07/17 20:30 Temperature 98.8 F Pulse Rate 67 65 Respiratory Rate 16 16 Blood Pressure 162/82 H 157/81 H Pulse Oximetry 96 99 97 12/07/17 21:00 12/07/17 21:32 12/07/17 23:07 Temperature Pulse Rate 64 65 66 Respiratory Rate 16 16 16 Blood Pressure 143/83 H 143/84 H 152/86 H Pulse Oximetry 94 L 97 12/08/17 00:45 12/08/17 01:00 12/08/17 02:00 Temperature 97.8 F Pulse Rate 63 66 56 L Respiratory Rate 16 16 Blood Pressure 144/92 H Pulse Oximetry 96 12/08/17 03:00 12/08/17 03:53 12/08/17 04:00 Temperature 98 F Pulse Rate 65 59 L 64 Respiratory Rate 16 Blood Pressure 138/85 Pulse Oximetry 95 12/08/17 05:00 12/08/17 06:00 Temperature Pulse Rate 64 67 Respiratory Rate Blood Pressure Pulse Oximetry Intake & Output 12/07/17 12/08/17 12/08/17 18:59 06:59 18:59 Intake Total 0 / 0 Output Total 800 / 800 Balance -800 / -800 Weight 101 kg Intake: Oral 0 / 0 Output: Urine 800 / 800 Other: # Bowel Movements 0 - Constitutional no acute distress, average body habitus - Routine HEENT Exam Head: Present: normocephalic, atraumatic Eye: Present: EOMI, PERRL ENT: Present: mucous membranes moist - Routine Neck Exam Present: full ROM. Absent: JVD, carotid bruit - Routine Respiratory Exam Present: CTA bilaterally - Routine Cardiovascular Exam Present: RRR, S1, S2. Absent: murmur, gallop, rubs - Routine Abdominal Exam Present: soft, normoactive bowel sounds. Absent: tenderness, distended - Routine Extremities Exam Present: full ROM. Absent: cyanosis, clubbing, edema - Routine Skin Exam Present: intact. Absent: cyanosis, erythema - Routine Neurological Exam Present: alert, oriented X3, CN II-XII intact, normal reflexes, moving all extremities, normal tone. Absent: sensory deficit, motor deficit Results - Labs CBC & Chem 7: 12/07/17 19:10 12/08/17 06:19 Laboratory Results - last 24 hr 12/07/17 12/07/17 12/07/17 19:10 19:10 19:10 WBC 9.5 RBC 5.19 Hgb 15.5 POC Hgb (Calc) 16.0 Hct 46.7 POC Hct 47.0 MCV 90.0 MCH 29.9 MCHC 33.2 RDW 14.2 Plt Count 268 MPV 7.5 Neut % (Auto) 57.4 Lymph % (Auto) 32.7 [place] % (Auto) 8.8 H Eos % (Auto) 0.7 Baso % (Auto) 0.4 Neut # (Auto) 5.5 Lymph # (Auto) 3.1 [place] # (Auto) 0.8 Eos # (Auto) 0.1 Baso # (Auto) 0.0 WBC Differential . Differential Comment Auto diff final PT 9.5 L INR 0.9 APTT 30.3 H POC Sodium 143 Sodium 141 POC Potassium 4.0 Potassium 3.9 POC Chloride 103 Chloride 105 Carbon Dioxide 27.1 Anion Gap 9 POC BUN 19 BUN 18 Creatinine 1.00 POC Creatinine 0.9 Estimated GFR 75 L POC Glucose 105 Random Glucose 101 Calcium 8.8 Total Creatine Kinase 200 CK-MB (CK-2) 3.6 Troponin I Less than 0.02 L Triglycerides Cholesterol LDL Cholesterol, Calc HDL Cholesterol Cholesterol/HDL Ratio Urine Color Urine Clarity Urine pH Ur Specific [place] Urine Protein Urine Glucose (UA) Urine Ketones Urine Occult Blood Urine Nitrate Urine Bilirubin Urine Urobilinogen Ur Leukocyte Esterase Urine RBC Urine WBC Micro UA Comment Ur Microscopic Review Urine Culture Comments Urine Opiates Screen Ur Barbiturates Screen Ur Amphetamines Screen U Benzodiazepines Scrn Urine Cocaine Screen U Cannabinoids Screen 12/07/17 12/07/17 12/08/17 21:37 21:37 06:19 WBC RBC Hgb POC Hgb (Calc) Hct POC Hct MCV MCH MCHC RDW Plt Count MPV Neut % (Auto) Lymph % (Auto) [place] % (Auto) Eos % (Auto) Baso % (Auto) Neut # (Auto) Lymph # (Auto) [place] # (Auto) Eos # (Auto) Baso # (Auto) WBC Differential Differential Comment PT INR APTT POC Sodium Sodium 142 POC Potassium Potassium 4.0 POC Chloride Chloride 107 Carbon Dioxide 25.7 Anion Gap 9 POC BUN BUN 14 Creatinine 0.96 POC Creatinine Estimated GFR 78 L POC Glucose Random Glucose 113 H Calcium 8.2 L Total Creatine Kinase CK-MB (CK-2) Troponin I Triglycerides 136 Cholesterol 176 LDL Cholesterol, Calc 109 H HDL Cholesterol 40.1 Cholesterol/HDL Ratio 4.38 Urine Color Yellow Urine Clarity Clear Urine pH 7.0 Ur Specific [place] 1.024 Urine Protein Negative Urine Glucose (UA) Negative Urine Ketones Negative Urine Occult Blood Negative Urine Nitrate Negative Urine Bilirubin Negative Urine Urobilinogen Less than 2 Ur Leukocyte Esterase Negative Urine RBC Less than 1 Urine WBC Less than 1 Micro UA Comment Culture not ind Ur Microscopic Review Not Reportable Urine Culture Comments Culture not ind Urine Opiates Screen Neg Ur Barbiturates Screen Pos H Ur Amphetamines Screen Neg U Benzodiazepines Scrn Neg Urine Cocaine Screen Neg U Cannabinoids Screen Neg - Imaging Impressions Head CT 12/07/17 19:40 CONCLUSION: 1. No acute findings in the brain. 2. 5 mm calcification in the left lateral thalamus at site of prior hemorrhage in June 2016. Report was called to Dr. Smith at 7:54 PM. Head CTA 12/07/17 19:40 CONCLUSION: 1. Negative CTA [place]. Neck CTA 12/07/17 19:40 CONCLUSION: 1. Negative CTA carotids. Head MRI 12/07/17 22:07 CONCLUSION: 1. No evidence of acute infarction. 2. Small old hemorrhage in the left thalamus and stable solitary area of T2 prolongation in the posterior right low convexity parietal cortex, unchanged from June 2016. Head MRA 12/07/17 22:07 CONCLUSION: No acute intracranial vascular abnormality is identified. Assessment and Plan - Plan Patient is a 67 year old man with a history of CVA with a one day history of vertigo induced by head movement. Patient had no other symptoms. Head CT, CTA of head and neck, MRI and MRA all negative. Neurology was consulted and suspects BPPV. Benign paroxysmal vertigo: CT, CTA head and neck, MRI, MRA negative Neuro recs: D/C with meclizine and vestibular therapy outpatient. Physical therapy evaluation Follow up outpatient with PCP and neurology as necessary Code Status: Full Discharge Planning: D/C later today pending PO intake and PT
--- NOTE | 2017-12-08 10:46 | P.DS ---
Date of admission: 12/07/17 20:32 Primary care physician: No Primary Care Physician Brief History from admission: 67-year-old male with a past medical history significant for chronic migraines and previous hemorrhagic stroke in June presents to the emergency department for evaluation of vertigo. The patient reports his symptoms started at 1230 today. He had slurred speech that is slowly improving. He endorses a headache. He denies facial droop or focal weakness. The patient reports the vertigo is similar to his hemorrhagic stroke in the past. He denies any chest pain or shortness of breath. No abdominal pain. No nausea/vomiting/diarrhea. No fevers or chills. DS: Diagnosis - Discharge Diagnosis (1) Benign positional vertigo Status: Acute (2) Peripheral vestibulopathy Status: Acute (3) Hypertension Status: Acute DS: Medications - Discharge Medications Prescriptions: meclizine 25 mg PO TID PRN #60 tab PRN Reason: Dizziness DS: Summary Hospital Course: cancel - Time Spent with Patient Total time spent providing and/or coordinating discharge services: Greater than 30 minutes - Quality: Stroke Last date observed well: 12/07/17 Last time observed well: 01:30 Exam Vital signs: Vital Signs 12/07/17 19:33 12/07/17 19:44 12/07/17 20:30 Temperature 98.8 F Pulse Rate 67 65 Respiratory Rate 16 16 Blood Pressure 162/82 H 157/81 H Pulse Oximetry 96 99 97 12/07/17 21:00 12/07/17 21:32 12/07/17 23:07 Temperature Pulse Rate 64 65 66 Respiratory Rate 16 16 16 Blood Pressure 143/83 H 143/84 H 152/86 H Pulse Oximetry 94 L 97 12/08/17 00:45 12/08/17 01:00 12/08/17 02:00 Temperature 97.8 F Pulse Rate 63 66 56 L Respiratory Rate 16 16 Blood Pressure 144/92 H Pulse Oximetry 96 12/08/17 03:00 12/08/17 03:53 12/08/17 04:00 Temperature 98 F Pulse Rate 65 59 L 64 Respiratory Rate 16 Blood Pressure 138/85 Pulse Oximetry 95 12/08/17 05:00 12/08/17 06:00 12/08/17 07:00 Temperature Pulse Rate 64 67 70 Respiratory Rate Blood Pressure Pulse Oximetry 12/08/17 08:00 Temperature 97.4 F L Pulse Rate 68 Respiratory Rate 16 Blood Pressure 143/80 H Pulse Oximetry 98 Intake & Output 12/07/17 12/08/17 12/08/17 18:59 06:59 18:59 Intake Total 0 / 0 Output Total 800 / 800 Balance -800 / -800 Weight 101 kg Intake: Oral 0 / 0 Output: Urine 800 / 800 Other: # Bowel Movements 0 Results Labs on day of discharge: Labs from last 24 hours 12/08/17 12/08/17 12/07/17 06:19 06:19 21:37 WBC RBC Hgb POC Hgb (Calc) Hct POC Hct MCV MCH MCHC RDW Plt Count MPV Neut % (Auto) Lymph % (Auto) [place] % (Auto) Eos % (Auto) Baso % (Auto) Neut # (Auto) Lymph # (Auto) [place] # (Auto) Eos # (Auto) Baso # (Auto) WBC Differential Differential Comment PT INR APTT POC Sodium Sodium 142 POC Potassium Potassium 4.0 POC Chloride Chloride 107 Carbon Dioxide 25.7 Anion Gap 9 POC BUN BUN 14 Creatinine 0.96 POC Creatinine Estimated GFR 78 L POC Glucose Random Glucose 113 H Hemoglobin A1c Pending Calcium 8.2 L Total Creatine Kinase CK-MB (CK-2) Troponin I Triglycerides 136 Cholesterol 176 LDL Cholesterol, Calc 109 H HDL Cholesterol 40.1 Cholesterol/HDL Ratio 4.38 Urine Color Yellow Urine Clarity Clear Urine pH 7.0 Ur Specific [place] 1.024 Urine Protein Negative Urine Glucose (UA) Negative Urine Ketones Negative Urine Occult Blood Negative Urine Nitrate Negative Urine Bilirubin Negative Urine Urobilinogen Less than 2 Ur Leukocyte Esterase Negative Urine RBC Less than 1 Urine WBC Less than 1 Micro UA Comment Culture not ind Ur Microscopic Review Not Reportable Urine Culture Comments Culture not ind Urine Opiates Screen Ur Barbiturates Screen Ur Amphetamines Screen U Benzodiazepines Scrn Urine Cocaine Screen U Cannabinoids Screen 12/07/17 12/07/17 12/07/17 21:37 19:10 19:10 WBC RBC Hgb POC Hgb (Calc) 16.0 Hct POC Hct 47.0 MCV MCH MCHC RDW Plt Count MPV Neut % (Auto) Lymph % (Auto) [place] % (Auto) Eos % (Auto) Baso % (Auto) Neut # (Auto) Lymph # (Auto) [place] # (Auto) Eos # (Auto) Baso # (Auto) WBC Differential Differential Comment PT 9.5 L INR 0.9 APTT 30.3 H POC Sodium 143 Sodium 141 POC Potassium 4.0 Potassium 3.9 POC Chloride 103 Chloride 105 Carbon Dioxide 27.1 Anion Gap 9 POC BUN 19 BUN 18 Creatinine 1.00 POC Creatinine 0.9 Estimated GFR 75 L POC Glucose 105 Random Glucose 101 Hemoglobin A1c Calcium 8.8 Total Creatine Kinase 200 CK-MB (CK-2) 3.6 Troponin I Less than 0.02 L Triglycerides Cholesterol LDL Cholesterol, Calc HDL Cholesterol Cholesterol/HDL Ratio Urine Color Urine Clarity Urine pH Ur Specific [place] Urine Protein Urine Glucose (UA) Urine Ketones Urine Occult Blood Urine Nitrate Urine Bilirubin Urine Urobilinogen Ur Leukocyte Esterase Urine RBC Urine WBC Micro UA Comment Ur Microscopic Review Urine Culture Comments Urine Opiates Screen Neg Ur Barbiturates Screen Pos H Ur Amphetamines Screen Neg U Benzodiazepines Scrn Neg Urine Cocaine Screen Neg U Cannabinoids Screen Neg 12/07/17 19:10 WBC 9.5 RBC 5.19 Hgb 15.5 POC Hgb (Calc) Hct 46.7 POC Hct MCV 90.0 MCH 29.9 MCHC 33.2 RDW 14.2 Plt Count 268 MPV 7.5 Neut % (Auto) 57.4 Lymph % (Auto) 32.7 [place] % (Auto) 8.8 H Eos % (Auto) 0.7 Baso % (Auto) 0.4 Neut # (Auto) 5.5 Lymph # (Auto) 3.1 [place] # (Auto) 0.8 Eos # (Auto) 0.1 Baso # (Auto) 0.0 WBC Differential . Differential Comment Auto diff final PT INR APTT POC Sodium Sodium POC Potassium Potassium POC Chloride Chloride Carbon Dioxide Anion Gap POC BUN BUN Creatinine POC Creatinine Estimated GFR POC Glucose Random Glucose Hemoglobin A1c Calcium Total Creatine Kinase CK-MB (CK-2) Troponin I Triglycerides Cholesterol LDL Cholesterol, Calc HDL Cholesterol Cholesterol/HDL Ratio Urine Color Urine Clarity Urine pH Ur Specific [place] Urine Protein Urine Glucose (UA) Urine Ketones Urine Occult Blood Urine Nitrate Urine Bilirubin Urine Urobilinogen Ur Leukocyte Esterase Urine RBC Urine WBC Micro UA Comment Ur Microscopic Review Urine Culture Comments Urine Opiates Screen Ur Barbiturates Screen Ur Amphetamines Screen U Benzodiazepines Scrn Urine Cocaine Screen U Cannabinoids Screen - Impressions ITS Impressions Head CT 12/07/17 19:40 CONCLUSION: 1. No acute findings in the brain. 2. 5 mm calcification in the left lateral thalamus at site of prior hemorrhage in June 2016. Report was called to Dr. Smith at 7:54 PM. Head CTA 12/07/17 19:40 CONCLUSION: 1. Negative CTA [place]. Neck CTA 12/07/17 19:40 CONCLUSION: 1. Negative CTA carotids. Head MRI 12/07/17 22:07 CONCLUSION: 1. No evidence of acute infarction. 2. Small old hemorrhage in the left thalamus and stable solitary area of T2 prolongation in the posterior right low convexity parietal cortex, unchanged from June 2016. Head MRA 12/07/17 22:07 CONCLUSION: No acute intracranial vascular abnormality is identified. Discharge Plan - Discharge Disposition Patient Disposition: 01 Discharge Home - Discharge Condition Condition: Stable - Discharge Order Discharge Orders: Discharge Order (Routine); Ordered 12/08/17 Ordered By: Stacy Weber - Discharge Details Anticipated Discharge Date: 12/08/17 - Physicians Team Primary Care Provider: Primary Care Kemi,No Attending Provider: Stacy Weber Other Providers: David Carter MD ; [employer],Insurance
--- NOTE | 2017-12-08 13:23 | ECHRPT ---
Indication: cva CONCLUSIONS Normal left ventricular size and function. Wall thickness is normal. The left atrial size is upper normal. Trace mitral valve regurgitation. There is mild tricuspid valve regurgitation. The estimated pulmonary arterial pressure is 37.5 mmHg. BP: / HR: Rhythm: MEASUREMENTS (Male / Female) Normal Values Technical Quality: 2D ECHO LV Diastolic Diameter PLAX 4.6 cm 4.2 - 5.9 / 3.9 - 5.3 cm LV Systolic Diameter PLAX 3.4 cm IVS Diastolic Thickness 0.9 cm 0.6 - 1.0 / 0.6 - 0.9 cm LVPW Diastolic Thickness 0.9 cm 0.6 - 1.0 / 0.6 - 0.9 cm LV Relative Wall Thickness 0.4 RV Internal Dim ED PLAX 3.5 cm LVOT Diameter 1.9 cm Aortic Root Diameter 2.8 cm LA Systolic Diameter LX 3.0 cm 3.0 - 4.0 / 2.7 - 3.8 cm LV Ejection Fraction MOD 4C 68.3 % LV Ejection Fraction 4C AL 69.0 % M-MODE Aortic Root Diameter MM 3.1 cm LA Systolic Diameter MM 4.4 cm LA Ao Ratio MM 1.4 AV Cusp Separation MM 2.0 cm DOPPLER AV Peak Velocity 105.9 cm/s AV Peak Gradient 4.5 mmHg LVOT Peak Velocity 90.5 cm/s LVOT Peak Gradient 3.3 mmHg AV Area Cont Eq pk 2.4 cm Mitral E Point Velocity 54.8 cm/s Mitral A Point Velocity 80.9 cm/s Mitral E to A Ratio 0.7 LV E' Lateral Velocity 7.1 cm/s Mitral E to LV E' Lateral Ratio 7.7 LV E' Septal Velocity 8.6 cm/s Mitral E to LV E' Septal Ratio 6.4 TR Peak Velocity 262.0 cm/s TR Peak Gradient 27.5 mmHg Right Atrial Pressure 10.0 mmHg Pulmonary Artery Systolic Pressu 37.5 mmHg Right Ventricular Systolic Press 37.5 mmHg FINDINGS LEFT VENTRICLE Normal left ventricular size. Wall thickness is normal. The left ventricular systolic function is normal with an estimated ejection fraction in the range of 60-65%. RIGHT VENTRICLE Normal right ventricular size and systolic function. LEFT ATRIUM The left atrial size is upper normal. RIGHT ATRIUM The right atrial size is normal. ATRIAL SEPTUM Normal atrial septal thickness without atrial level shunting by limited color doppler interrogation. AORTA The aortic root and proximal ascending aorta are normal in size on limited imaging. MITRAL VALVE Trace mitral valve regurgitation. AORTIC VALVE Trileaflet aortic valve. No aortic valve stenosis or regurgitation. TRICUSPID VALVE There is mild tricuspid valve regurgitation. The estimated pulmonary arterial pressure is 37.5 mmHg. PULMONARY VALVE No pulmonary valve regurgitation or stenosis. VESSELS The inferior vena cava is normal in size. PERICARDIUM No pericardial effusion. Jimbo Sanchez MD (Electronically Signed) Final Date:08 December 2017 13:21
--- NOTE | 2017-12-08 13:46 | P.PN ---
Subjective Interval history: Past swallow evaluation. Start diet. Still with vertigo when he is walking to the bathroom. Also complains of mild headaches. Denies nausea, vomiting, right is weakness, fever, chills. Physical Exam Vital signs: Vital Signs 12/07/17 19:33 12/07/17 19:44 12/07/17 20:30 Temperature 98.8 F Pulse Rate 67 65 Respiratory Rate 16 16 Blood Pressure 162/82 H 157/81 H Pulse Oximetry 96 99 97 12/07/17 21:00 12/07/17 21:32 12/07/17 23:07 Temperature Pulse Rate 64 65 66 Respiratory Rate 16 16 16 Blood Pressure 143/83 H 143/84 H 152/86 H Pulse Oximetry 94 L 97 12/08/17 00:45 12/08/17 01:00 12/08/17 02:00 Temperature 97.8 F Pulse Rate 63 66 56 L Respiratory Rate 16 16 Blood Pressure 144/92 H Pulse Oximetry 96 12/08/17 03:00 12/08/17 03:53 12/08/17 04:00 Temperature 98 F Pulse Rate 65 59 L 64 Respiratory Rate 16 Blood Pressure 138/85 Pulse Oximetry 95 12/08/17 05:00 12/08/17 06:00 12/08/17 07:00 Temperature Pulse Rate 64 67 70 Respiratory Rate Blood Pressure Pulse Oximetry 12/08/17 08:00 12/08/17 09:00 12/08/17 10:00 Temperature 97.4 F L Pulse Rate 66 68 66 Respiratory Rate 16 Blood Pressure 143/80 H Pulse Oximetry 95 12/08/17 11:00 12/08/17 11:52 12/08/17 12:00 Temperature 98.1 F Pulse Rate 65 67 80 Respiratory Rate 16 Blood Pressure 152/99 H Pulse Oximetry 12/08/17 13:00 Temperature Pulse Rate 75 Respiratory Rate Blood Pressure Pulse Oximetry Intake & Output 12/07/17 12/08/17 12/08/17 18:59 06:59 18:59 Intake Total 0 / 0 1000 / 1000 Output Total 800 / 800 Balance -800 / -800 1000 / 1000 Weight 101 kg Intake: IV 1000 / 1000 NS Inj 1,000 ML @ 70 mls/hr IV. 1000 / 1000 CONT .[id number] [facility] Rx#:[id number] Oral 0 / 0 Output: Urine 800 / 800 Other: # Bowel Movements 0 Narrative: GENERAL: Pleasant 67-year-old male, well-nourished well-developed, appears in NAD. This HEAD: Atraumatic. Normocephalic. CARDIOVASCULAR: Regular rate and rhythm. RESPIRATORY: No accessory muscle use. GASTROINTESTINAL: Abdomen soft, non-tender, nondistended. MUSCULOSKELETAL: Extremities without clubbing, cyanosis, or edema. No obvious deformities. NEUROLOGICAL: Awake and alert. Oriented x3 no aphasia normal speech. Five out of 5 muscle strength in the arms and legs. PSYCHIATRIC: Appropriate mood and affect; insight and judgment normal. Results - Labs CBC & Chem 7: 12/07/17 19:10 12/08/17 06:19 Laboratory Results - last 24 hr 12/07/17 12/07/17 12/07/17 19:10 19:10 19:10 WBC 9.5 RBC 5.19 Hgb 15.5 POC Hgb (Calc) 16.0 Hct 46.7 POC Hct 47.0 MCV 90.0 MCH 29.9 MCHC 33.2 RDW 14.2 Plt Count 268 MPV 7.5 Neut % (Auto) 57.4 Lymph % (Auto) 32.7 [place] % (Auto) 8.8 H Eos % (Auto) 0.7 Baso % (Auto) 0.4 Neut # (Auto) 5.5 Lymph # (Auto) 3.1 [place] # (Auto) 0.8 Eos # (Auto) 0.1 Baso # (Auto) 0.0 WBC Differential . Differential Comment Auto diff final PT 9.5 L INR 0.9 APTT 30.3 H POC Sodium 143 Sodium 141 POC Potassium 4.0 Potassium 3.9 POC Chloride 103 Chloride 105 Carbon Dioxide 27.1 Anion Gap 9 POC BUN 19 BUN 18 Creatinine 1.00 POC Creatinine 0.9 Estimated GFR 75 L POC Glucose 105 Random Glucose 101 Calcium 8.8 Total Creatine Kinase 200 CK-MB (CK-2) 3.6 Troponin I Less than 0.02 L Triglycerides Cholesterol LDL Cholesterol, Calc HDL Cholesterol Cholesterol/HDL Ratio Urine Color Urine Clarity Urine pH Ur Specific [place] Urine Protein Urine Glucose (UA) Urine Ketones Urine Occult Blood Urine Nitrate Urine Bilirubin Urine Urobilinogen Ur Leukocyte Esterase Urine RBC Urine WBC Micro UA Comment Ur Microscopic Review Urine Culture Comments Urine Opiates Screen Ur Barbiturates Screen Ur Amphetamines Screen U Benzodiazepines Scrn Urine Cocaine Screen U Cannabinoids Screen 12/07/17 12/07/17 12/08/17 21:37 21:37 06:19 WBC RBC Hgb POC Hgb (Calc) Hct POC Hct MCV MCH MCHC RDW Plt Count MPV Neut % (Auto) Lymph % (Auto) [place] % (Auto) Eos % (Auto) Baso % (Auto) Neut # (Auto) Lymph # (Auto) [place] # (Auto) Eos # (Auto) Baso # (Auto) WBC Differential Differential Comment PT INR APTT POC Sodium Sodium 142 POC Potassium Potassium 4.0 POC Chloride Chloride 107 Carbon Dioxide 25.7 Anion Gap 9 POC BUN BUN 14 Creatinine 0.96 POC Creatinine Estimated GFR 78 L POC Glucose Random Glucose 113 H Calcium 8.2 L Total Creatine Kinase CK-MB (CK-2) Troponin I Triglycerides 136 Cholesterol 176 LDL Cholesterol, Calc 109 H HDL Cholesterol 40.1 Cholesterol/HDL Ratio 4.38 Urine Color Yellow Urine Clarity Clear Urine pH 7.0 Ur Specific [place] 1.024 Urine Protein Negative Urine Glucose (UA) Negative Urine Ketones Negative Urine Occult Blood Negative Urine Nitrate Negative Urine Bilirubin Negative Urine Urobilinogen Less than 2 Ur Leukocyte Esterase Negative Urine RBC Less than 1 Urine WBC Less than 1 Micro UA Comment Culture not ind Ur Microscopic Review Not Reportable Urine Culture Comments Culture not ind Urine Opiates Screen Neg Ur Barbiturates Screen Pos H Ur Amphetamines Screen Neg U Benzodiazepines Scrn Neg Urine Cocaine Screen Neg U Cannabinoids Screen Neg - Imaging Impressions Head CT 12/07/17 19:40 CONCLUSION: 1. No acute findings in the brain. 2. 5 mm calcification in the left lateral thalamus at site of prior hemorrhage in June 2016. Report was called to Dr. Smith at 7:54 PM. Head CTA 12/07/17 19:40 CONCLUSION: 1. Negative CTA [place]. Neck CTA 12/07/17 19:40 CONCLUSION: 1. Negative CTA carotids. Head MRI 12/07/17 22:07 CONCLUSION: 1. No evidence of acute infarction. 2. Small old hemorrhage in the left thalamus and stable solitary area of T2 prolongation in the posterior right low convexity parietal cortex, unchanged from June 2016. Head MRA 12/07/17 22:07 CONCLUSION: No acute intracranial vascular abnormality is identified. Assessment and Plan - Assessment (1) Benign positional vertigo Code(s): H81.10 - Benign paroxysmal vertigo, unspecified ear Status: Acute (2) Peripheral vestibulopathy Code(s): H81.90 - Unspecified disorder of vestibular function, unspecified ear Status: Acute (3) Hypertension Code(s): I10 - Essential (primary) hypertension Status: Acute - Plan Patient is a 67 year old man with a history of CVA with a one day history of vertigo induced by head movement. Patient had no other symptoms. Head CT, CTA of head and neck, MRI and MRA all negative. Neurology was consulted and suspects BPPV. Benign paroxysmal vertigo: CT, CTA head and neck, MRI, MRA negative Neuro recs. Neurology consulted D/C with meclizine and vestibular therapy outpatient. Physical therapy evaluation Follow up outpatient with PCP and neurology as necessary Start meclizine inpatient and monitor as patient still with headaches and vertigo is not resolved. PT evaluate and treat Code Status: Full Discharge Planning: D/C later today pending PO intake and PT eval and patient improvement
--- NOTE | 2017-12-08 15:07 | ECG ---
Date Performed: 12/07/2017 Time Performed: 23:05:21 PTAGE: 67 years EKG: Sinus rhythm MARKED LEFT AXIS DEVIATION ABNORMAL ECG PREVIOUS TRACING : 07/23/2016 21.17 Since the previous tracing, no significant change noted DOCTOR: Zhou Nails Interpretating Date/Time 12/08/2017 15:05:56
[2017-12-08 17:52] LABS: Hemoglobin A1c 6.2 % (4.3-6.0)
[2017-12-09] MEDS: Sod Chloride 0.9% Inj 1,000 ML IV.CONT SCH (05:46)
[2017-12-09 08:25] VITALS: RESP 18
--- NOTE | 2017-12-09 10:31 | P.DS ---
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 The patient reports his symptoms started at 1230 today. He had slurred speech that is slowly improving. He endorses a headache. He denies facial droop or focal weakness. The patient reports the vertigo is similar to his hemorrhagic stroke in the past. He denies any chest pain or shortness of breath. No abdominal pain. No nausea/vomiting/diarrhea. No fevers or chills. DS: Diagnosis - Discharge Diagnosis (1) Benign positional vertigo Status: Acute (2) Peripheral vestibulopathy Status: Acute (3) Hypertension Status: Acute DS: Medications - Discharge Medications Prescriptions: meclizine 25 mg PO TID PRN #60 tab PRN Reason: Dizziness DS: Summary Hospital Course: Patient is a 67 year old man with a history of CVA with a one day history of vertigo induced by head movement. Patient had no other symptoms. Head CT, CTA of head and neck, MRI and MRA all negative. Neurology was consulted and suspects BPPV. 2D EChO reviewed and normal EF. Cleared by neuro for DC. To follow up as OP witg PCP and consultants. Patient improved he is DC home in stable condition. Benign paroxysmal vertigo: CT, CTA head and neck, MRI, MRA negative Neuro recs. Neurology consulted D/C with meclizine and vestibular therapy outpatient. Physical therapy evaluation Follow up outpatient with PCP and neurology as necessary Start meclizine inpatient and monitor as patient still with headaches and vertigo is not resolved. PT evaluate and treat 2D ECHO normal EF 60% - Time Spent with Patient Total time spent providing and/or coordinating discharge services: Greater than 30 minutes - Quality: Stroke Last date observed well: 12/07/17 Last time observed well: 01:30 Exam Vital signs: Vital Signs 12/08/17 11:00 12/08/17 11:52 12/08/17 12:00 Temperature 98.1 F Pulse Rate 65 67 80 Respiratory Rate 16 Blood Pressure 152/99 H Pulse Oximetry 12/08/17 13:00 12/08/17 14:00 12/08/17 15:00 Temperature Pulse Rate 75 63 60 Respiratory Rate Blood Pressure Pulse Oximetry 12/08/17 16:00 12/08/17 17:00 12/08/17 18:00 Temperature 97.3 F L Pulse Rate 71 75 78 Respiratory Rate 16 Blood Pressure 153/90 H Pulse Oximetry 97 12/08/17 19:00 12/08/17 20:00 12/08/17 21:00 Temperature 97.5 F L Pulse Rate 64 93 H 74 Respiratory Rate 20 Blood Pressure 151/93 H Pulse Oximetry 93 L 12/08/17 22:00 12/08/17 23:00 12/09/17 00:00 Temperature Pulse Rate 72 72 68 Respiratory Rate 16 Blood Pressure Pulse Oximetry 12/09/17 01:00 12/09/17 02:00 12/09/17 03:00 Temperature Pulse Rate 66 72 68 Respiratory Rate Blood Pressure Pulse Oximetry 12/09/17 04:00 12/09/17 05:00 12/09/17 06:00 Temperature Pulse Rate 66 66 64 Respiratory Rate 16 Blood Pressure 124/66 Pulse Oximetry 95 12/09/17 07:00 12/09/17 08:00 12/09/17 09:00 Temperature 97.7 F Pulse Rate 70 72 75 Respiratory Rate 18 Blood Pressure 157/92 H Pulse Oximetry 94 L 12/09/17 10:00 12/09/17 10:07 Temperature Pulse Rate 73 Respiratory Rate 18 Blood Pressure Pulse Oximetry Intake & Output 12/08/17 12/09/17 12/09/17 18:59 06:59 18:59 Intake Total 2680 / 2680 240 / 240 Output Total 950 / 950 Balance 1730 / 1730 240 / 240 Weight 99 kg Intake: IV 1999 NS Inj 1,000 ML @ 70 mls/hr IV. 1999 CONT .[id number] [facility] Rx#:[id number] Oral 680 / 680 240 / 240 Output: Urine 950 / 950 Other: # Voids 1 Date of Last Bowel Movement 12/08/17 12/08/17 12/08/17 # Bowel Movements 1 Narrative: GENERAL: Pleasant 67-year-old male, well-nourished well-developed, appears in NAD. HEAD: Atraumatic. Normocephalic. CARDIOVASCULAR: Regular rate and rhythm. RESPIRATORY: No accessory muscle use. GASTROINTESTINAL: Abdomen soft, non-tender, nondistended. MUSCULOSKELETAL: Extremities without clubbing, cyanosis, or edema. No obvious deformities. NEUROLOGICAL: Awake and alert. Oriented x3 no aphasia normal speech. Five out of 5 muscle strength in the arms and legs. PSYCHIATRIC: Appropriate mood and affect; insight and judgment normal. Results Procedures completed during hospitalization: none Labs on day of discharge: Labs from last 24 hours 12/08/17 06:19 Hemoglobin A1c 6.2 H - Impressions ITS Impressions Head CT 12/07/17 19:40 CONCLUSION: 1. No acute findings in the brain. 2. 5 mm calcification in the left lateral thalamus at site of prior hemorrhage in June 2016. Report was called to Dr. Smith at 7:54 PM. Head CTA 12/07/17 19:40 CONCLUSION: 1. Negative CTA makah of [place]. Neck CTA 12/07/17 19:40 CONCLUSION: 1. Negative CTA carotids. Head MRI 12/07/17 22:07 CONCLUSION: 1. No evidence of acute infarction. 2. Small old hemorrhage in the left thalamus and stable solitary area of T2 prolongation in the posterior right low convexity parietal cortex, unchanged from June 2016. Head MRA 12/07/17 22:07 CONCLUSION: No acute intracranial vascular abnormality is identified. Discharge Plan - Discharge Disposition Patient Disposition: 01 Discharge Home - Discharge Condition Condition: Stable - Discharge Order Discharge Orders: Discharge Order (Routine); Ordered 12/09/17 Ordered By: Stacy Weber - Discharge Details Anticipated Discharge Date: 12/08/17 - Physicians Team Primary Care Provider: Primary Care Kemi,Nanette Attending Provider: Stacy Weber Other Providers: David Carter MD ; Sape,Insurance
[2017-12-09 10:50] VITALS: BP 140/82
[2017-12-09 12:12] VITALS: TEMP 97.6; O2SAT 95
[2017-12-09 12:31] VITALS: PULSE 73
== END 2017-12-09 13:50 | disposition home or self-care (01) ==
LOC: NEPE 19:33 → OBSVTOIN 20:32 → INTOOBSV 20:32 → NEDA 20:32 → INTOOBSV 12-08 00:22 → HCIS 12-08 00:24
PROVIDERS: ADMIT Hospitalist; ATTEND Hospitalist